=== PATIENT | female | born 1940 | race Caucasian/White ===

== ENCOUNTER 2017-05-21 18:07 | Inpatient (IN) | payer MEDICARE ==
[~2017-05-21] VITALS: Ht 162.6 cm; Wt 92.2 kg
[2017-05-21] MEDS ORDERED: DEXTROSE 50% 25 GM / 50ML DISP.SYRIN. IV ONE (18:26)
[2017-05-21 18:48] LABS: BASO # 0.1 x10^3/uL (0.0-0.2); BASO % 1 % (0-3); EOS # 0.3 x10^3/uL (0.0-0.7); EOS % 3 % (0-3); HEMOGLOBIN 12.5 g/dL (12.0-15.5); LYMPH # 1.8 x10^3/uL (1.0-4.8); LYMPH % 14 % (24-48); MEAN CORPUSCULAR HEMOGLOBIN 29 pg (25-35); MEAN CORPUSCULAR HGB CONC 33 g/dL (31-37); MEAN CORPUSCULAR VOLUME 89 fL (79-100); MONO # 0.8 x10^3/uL (0.0-1.1); MONO % 6 % (0-9); NEUT # 10.2 x10^3uL (1.8-7.7); NEUT % 77 % (31-73); PLATELET COUNT 257 x10^3/uL (140-400); RED BLOOD COUNT 4.26 x10^6/uL (3.50-5.40); RED CELL DISTRIBUTION WIDTH 15.7 % (11.5-14.5); WHITE BLOOD COUNT 13.3 x10^3/uL (4.0-11.0)
[2017-05-21 19:08] LABS: ALBUMIN 3.6 g/dL (3.4-5.0); ALBUMIN/GLOBULIN RATIO 0.8 (1.0-1.7); CALCIUM 10.5 mg/dL (8.5-10.1); CREATININE 1.1 mg/dL (0.6-1.0); MAGNESIUM 1.8 mg/dL (1.8-2.4); POTASSIUM 3.4 mmol/L (3.5-5.1); TOTAL BILIRUBIN 0.5 mg/dL (0.2-1.0); TOTAL PROTEIN 8.4 g/dL (6.4-8.2)
--- NOTE | 2017-05-21 19:40 | PHYS DOC ---
Past History Past Medical History: A-Fib, Diabetes, Hypertension, Other Past Surgical History: No Surgical History Alcohol Use: None Drug Use: None Adult General Chief Complaint Chief Complaint: HYPOGLYCEMIA HPI HPI 76-year-old female patient brought in by EMS because of hypoglycemia. Patient states she was getting ready to fix dinner and went to the bathroom and felt weak and unable to get up. Patient states she was very weak and he was not able to move her and called 911 to get some help to take her back to the bed. EMS reported the patient was confused and not acting right and they checked her blood sugar that was 37. EMS reported that they were not able to start IV line and gave her oral glucose with improvement of her condition. Patient had blood sugar of 30 at arrival to ER and had IV line and one amp of D50 with improvement of her mental condition. 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 Patient has had left foot diabetic ulcer and surgery 5 years ago and seen by podiatric every other Friday and seen by her podiatric today. Review of Systems Review of Systems Constitutional: Denies fever or chills,reports generalized weakness[] Eyes: Denies change in visual acuity, redness, or eye pain [] HENT: Denies nasal congestion or sore throat [] Respiratory: Denies cough or shortness of breath [] Cardiovascular: No additional information not addressed in HPI [] GI: Denies abdominal pain, nausea, vomiting, bloody stools or diarrhea [] : Denies dysuria or hematuria [] Musculoskeletal: Denies back pain or joint pain [, reports lower extremity edema ] Integument: Denies rash or skin lesions [] Neurologic: Denies headache, focal weakness or sensory changes [] Endocrine: Denies polyuria or polydipsia [] All other systems were reviewed and found to be within normal limits, except as documented in this note. Current Medications Current Medications Current Medications Medications (Trade) Dose Ordered Sig/Ángel Start Time Stop Time Status Last Admin Dose Admin Dextrose 25 gm STK-MED ONCE 05/21/17 18:26 05/21/17 18:27 DC Allergies Allergies Allergies Coded Allergies Type Severity Reaction Last Updated Verified celecoxib Allergy Mild Unknown 05/21/17 Yes Physical Exam Physical Exam Constitutional: Well developed, well nourished, mild distress, non-toxic appearance, deaf, patient already had D50 at arrival to ER. [] HENT: Normocephalic, atraumatic, oropharynx moist, no oral exudates Eyes: PERRLA, EOMI, conjunctiva normal, no discharge. [] Neck: Normal range of motion, no tenderness, supple, no stridor. [] Cardiovascular:Heart rate regular rhythm, no murmur [] Lungs & Thorax: Bilateral breath sounds clear to auscultation [] Abdomen: Bowel sounds normal, soft, no tenderness, no masses, no pulsatile masses. [] Skin: Warm, dry, no erythema, no rash. [] Back: No tenderness, no CVA tenderness. [] Extremities: No tenderness, no cyanosis, no clubbing, ROM intact, bilateral lower extremity 2+ edema, left foot with clean dressing without sign of infection. [] Neurologic: Alert and oriented X 3, normal motor function, normal sensory function, no focal deficits noted. [] Psychologic: Affect normal, judgement normal, mood normal. [] Current Patient Data Vital Signs Vital Signs Date Time Temp Pulse Resp B/P (MAP) Pulse Ox O2 Delivery O2 Flow Rate FiO2 05/21/17 18:18 98.4 52 22 95 Room Air Lab Results Laboratory Tests Test 05/21/17 18:10 05/21/17 19:03 White Blood Count 13.3 x10^3/uL (4.0-11.0) H Red Blood Count 4.26 x10^6/uL (3.50-5.40) Hemoglobin 12.5 g/dL (12.0-15.5) Hematocrit 38.0 % (36.0-47.0) Mean Corpuscular Volume 89 fL (79-100) Mean Corpuscular Hemoglobin 29 pg (25-35) Mean Corpuscular Hemoglobin Concent 33 g/dL (31-37) Red Cell Distribution Width 15.7 % (11.5-14.5) H Platelet Count 257 x10^3/uL (140-400) Neutrophils (%) (Auto) 77 % (31-73) H Lymphocytes (%) (Auto) 14 % (24-48) L Monocytes (%) (Auto) 6 % (0-9) Eosinophils (%) (Auto) 3 % (0-3) Basophils (%) (Auto) 1 % (0-3) Neutrophils # (Auto) 10.2 x10^3uL (1.8-7.7) H Lymphocytes # (Auto) 1.8 x10^3/uL (1.0-4.8) Monocytes # (Auto) 0.8 x10^3/uL (0.0-1.1) Eosinophils # (Auto) 0.3 x10^3/uL (0.0-0.7) Basophils # (Auto) 0.1 x10^3/uL (0.0-0.2) Sodium Level 141 mmol/L (136-145) Potassium Level 3.4 mmol/L (3.5-5.1) L Chloride Level 102 mmol/L (98-107) Carbon Dioxide Level 26 mmol/L (21-32) Anion Gap 13 (6-14) Blood Urea Nitrogen 29 mg/dL (7-20) H Creatinine 1.1 mg/dL (0.6-1.0) H Estimated GFR (Cockcroft-Gault) 48.0 BUN/Creatinine Ratio 26 (6-20) H Glucose Level 30 mg/dL (70-99) *L Calcium Level 10.5 mg/dL (8.5-10.1) H Magnesium Level 1.8 mg/dL (1.8-2.4) Total Bilirubin 0.5 mg/dL (0.2-1.0) Aspartate Amino Transferase (AST) 20 U/L (15-37) Alanine Aminotransferase (ALT) 16 U/L (14-59) Alkaline Phosphatase 120 U/L (46-116) H Troponin I Quantitative < 0.017 ng/mL (0-0.055) OG-Xlr-G-Type Natriuretic Peptide 2278 pg/mL (0-449) H Total Protein 8.4 g/dL (6.4-8.2) H Albumin 3.6 g/dL (3.4-5.0) Albumin/Globulin Ratio 0.8 (1.0-1.7) L Glucose (Fingerstick) 137 mg/dL (70-99) H EKG EKG [] Radiology/Procedures Radiology/Procedures [] Course & Med Decision Making Course & Med Decision Making Pertinent Labs and Imaging studies reviewed. (See chart for details) Evaluation of patient in ER showed 76-year-old deaf female patient brought in by EMS because of hypoglycemia and altered level of consciousness. She had blood sugar of 30 at arrival to ER and treated with D50 and blood sugar increased to 137 and was stable at 100s. Patient had more than 40 WBC UA and treated with Rocephin. Plan to admit patient diagnose of hypoglycemia and uncontrolled diabetes mellitus and UTI. Patient has chronic CHF and currently taking Lasix. Patient also has history of left diabetic foot ulcerand seen by podiatric today. Dragon Disclaimer Dragon Disclaimer This electronic medical record was generated, in whole or in part, using a voice recognition dictation system. Departure Departure: Impression: Primary Impression: Hypoglycemia Additional Impressions: Altered level of consciousness Renal insufficiency CHF (congestive heart failure) Diabetic foot ulcer Disposition: ADMITTED INPATIENT (At 1957) Admitting Physician: Erin Johnson Condition: IMPROVED Referrals: MAHI FOX MD (PCP) Problem Qualifiers DAPHNE SPAIN MD May 21, 2017 19:40
[2017-05-21] MEDS ORDERED: DEXTROSE 50% 25 GM / 50ML DISP.SYRIN. IV PRN (20:00)
[2017-05-21 20:06] LABS: CLARITY,URINE CLOUDY; COLOR,URINE YELLOW
[2017-05-21 20:07] LABS: BACTERIA,URINE FEW /HPF (0-FEW); BILIRUBIN,URINE NEG (NEG); GLUCOSE,URINE 100 mg/dL (NEG); NITRITE,URINE NEG (NEG); SQUAMOUS EPITHELIAL CELL,UR MOD /LPF; UROBILINOGEN,URINE 0.2 mg/dL (0.2 mg/dL); WBC,URINE >40 /HPF (0-4)
[2017-05-21] MEDS ORDERED: cefTRIAXone IV Push 1 GM VIAL. IVP ONE (21:00)
--- NOTE | 2017-05-21 21:35 | NUR ---
ADMISSION: The patient, DORINDA CRUZ, 76 y/o, F admitted by MIK KEENAN MD, was given written information regarding hospital policies, unit procedures and contact persons. Pt arrived to room 109 via gurney, accompanied by [facility] and nursing sup. Dx: hypoglycemia, ALOC, renal insufficiency. Pt is A/Ox3, but hearing impaired. Pt was brought to ED via EMS after called 911 because patient was confused and too weak to get up from bathroom. Glucose 30mg/dL upon arrival to ED, IV access obtained and pt received 1 amp D50. Condition improved. PMH reviewed with patient, limited. POC discussed, V/U. Pt placed on telemetry, showing afib with HR in the 60's. Pt has diabetic ulcer to left great toe, sees network control operators supervisor weekly. Area measured and pic taken. Cleansed and dressed with gauze pads + kerlix. Wound care consulted. Pt provided with box lunch and H20. Denies c/o. Bed in lowest position. Call light within reach. Valuables were checked and logged. Left in room with patient.
[2017-05-21 22:48] VITALS: BP 149/71
[2017-05-22] MEDS ORDERED: RIVA20TA2 PO (00:31)
[2017-05-22] MEDS ORDERED: LISI10TA2 PO (00:31)
[2017-05-22] MEDS ORDERED: INSU100V31 SQ (00:31)
[2017-05-22] MEDS ORDERED: CARV3.122 PO (00:31)
[2017-05-22] MEDS ORDERED: LEVO50TA5 PO (00:31)
[2017-05-22] MEDS ORDERED: AMLO1CAP7 PO (00:31)
[2017-05-22] MEDS ORDERED: METH5TAB6 PO (00:31)
[2017-05-22] MEDS ORDERED: ATOR20TA58 PO (00:31)
[2017-05-22] MEDS ORDERED: FURO20TA3 PO (00:31)
[2017-05-22] MEDS ORDERED: INSU100V8 SQ (00:31)
[2017-05-22 05:31] VITALS: BP 155/67
[2017-05-22 06:28] LABS: BASO # 0.1 x10^3/uL (0.0-0.2); BASO % 1 % (0-3); EOS # 0.1 x10^3/uL (0.0-0.7); EOS % 2 % (0-3); HEMATOCRIT 37.4 % (36.0-47.0); HEMOGLOBIN 12.1 g/dL (12.0-15.5); LYMPH % 12 % (24-48); MEAN CORPUSCULAR HEMOGLOBIN 29 pg (25-35); MEAN CORPUSCULAR HGB CONC 32 g/dL (31-37); MEAN CORPUSCULAR VOLUME 90 fL (79-100); MONO # 0.5 x10^3/uL (0.0-1.1); MONO % 6 % (0-9); NEUT # 6.7 x10^3uL (1.8-7.7); NEUT % 79 % (31-73); PLATELET COUNT 222 x10^3/uL (140-400); RED BLOOD COUNT 4.16 x10^6/uL (3.50-5.40); WHITE BLOOD COUNT 8.4 x10^3/uL (4.0-11.0)
[2017-05-22 06:47] LABS: ALBUMIN 3.1 g/dL (3.4-5.0); ALBUMIN/GLOBULIN RATIO 0.7 (1.0-1.7); CALCIUM 10.1 mg/dL (8.5-10.1); GFR 53.6; POTASSIUM 3.6 mmol/L (3.5-5.1); TOTAL BILIRUBIN 0.6 mg/dL (0.2-1.0); TOTAL PROTEIN 7.4 g/dL (6.4-8.2)
[2017-05-22] MEDS ORDERED: LEVOTHYROXINE 50 MCG TABLET PO SCH (07:00)
[2017-05-22] MEDS: INSULIN ASPART 300 UNITS/3 ML INSULN.PEN SQ SCH ×3 (08:01→16:30)
[2017-05-22] MEDS: CARVEDILOL 3.125 MG TABLET PO SCH ×2 (08:14→17:00)
--- NOTE | 2017-05-22 08:35 | NUR ---
[facility] - SHIFT CHANGE REPORT REC BY FERMIN. PT IN BED, ASLEEP. IN ROOM. LABS/ORDERS REVIEWED.
[2017-05-22] MEDS ORDERED: INSULIN DETEMIR 300 UNITS/3 ML INSULN.PEN. SQ SCH (09:00)
[2017-05-22] MEDS: LISINOPRIL 10 MG TABLET PO SCH ×4 (09:00→21:02)
[2017-05-22] MEDS: LACTOBACILLUS RHAMNOSUS GG 1 CAPSULE. PO SCH ×2 (10:11→21:00)
[2017-05-22] MEDS: FUROSEMIDE 20 MG TABLET PO SCH (10:12)
[2017-05-22] MEDS: amLODIPine BESYLATE 2.5 MG TABLET PO SCH ×2 (10:23→21:01)
[2017-05-22 11:00] VITALS: BP 107/65
[2017-05-22 14:28] LABS: FREE T4 0.92 ng/dL (0.76-1.46); THYROID STIM HORMONE (TSH) 3.171 uIU/mL (0.358-3.740)
[2017-05-22 15:00] VITALS: BP 120/70
[2017-05-22] MEDS: RIVAROXABAN 10 MG TABLET. PO SCH (16:01)
--- NOTE | 2017-05-22 16:17 | HP ---
ADMIT DATE: 05/22/2017 HISTORY OF PRESENT ILLNESS: The patient is a 76-year-old female patient who was brought to the Emergency by EMS because of hypoglycemia. The patient states she was getting ready to fix dinner and went to the bathroom and felt weak and unable to get up. Her states she was very weak and he was not able to move her and called 911 to get some help to take her back into the bed. EMS reported the patient was confused, not acting right and they checked her blood sugar, it was only 37. They reported they were not able to start IV line and gave her oral glucose with improvement in her condition. The patient had blood sugar of 30 on arrival to the Emergency Room and an IV line was given with an amp of D50 and with improvement in her mental status. The patient is deaf and history is limited. She has also had left foot diabetic ulcer and surgery 5 years ago and seen by risk reduction counselor every other Friday. PAST MEDICAL HISTORY: Significant for type 2 diabetes, hypertension, atrial fibrillation, peripheral vascular disease, osteoarthritis. 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 ALLERGIES: She is allergic to CELEBREX. MEDICATIONS: She is currently on following medications: Xarelto 20 mg once a day, atorvastatin calcium 20 mg at bedtime, carvedilol 3.125 mg twice a day, amlodipine/benazepril 2.5-10 mg b.i.d., lisinopril 10 mg daily, furosemide 20 mg once a day. She is on NovoLog 4 units before meals and Lantus insulin 35 units at bedtime, levothyroxine sodium 50 mcg once a day and methimazole 5 mg daily. REVIEW OF SYSTEMS: The patient denied any blurring of vision, cataract, glaucoma or macular degeneration. Denied any earache, tinnitus or sensorineural deafness. Denied any nosebleeds, stuffy noise or postnasal drip. Denied any sore throat, sore tongue, toothache, hoarseness of voice or difficulty swallowing. Denied any nausea, vomiting, diarrhea or constipation. Denied any hematemesis, melena or hematochezia. Denied dysuria, frequency or hematuria. Denied any chest pain, shortness of breath, orthopnea or paroxysmal nocturnal dyspnea. Denied any cough, phlegm or hemoptysis. Denied any dizziness, lightheadedness, or vertigo. FAMILY HISTORY: Her family's history Significant for two brothers and 1 sister. Her one brother of brain tumor and the other brother is still alive, has diabetes and kidney disease. Her sister is hard of hearing. Also, her father in his 80s and mother at age of 92, the cause of that is not clear. SOCIAL HISTORY: She is , has 3 sons, one because of infected left foot and also massive pulmonary embolism. Two other sons are still alive and apparently have some form of disease predisposing to thrombosis. The are on anticoagulation. PHYSICAL EXAMINATION: GENERAL: On arrival to the Emergency Room, she looked well and was clearly in no apparent respiratory distress. She was pale, but no jaundice, cyanosis, or thyromegaly. No jugular venous distension. No limb edema. VITAL SIGNS: Her heart rate was 52, blood pressure 166/75, temperature was 98.4, respiratory rate 20, and oxygen saturation was 96% on room air. HEAD, EYES, EARS, NOSE, AND THROAT: Showed normocephalic, atraumatic. NECK: Supple. HEART: Showed normal first and second heart sounds with no gallop, rub or murmur. CHEST: Clear to auscultation. No crepitation or rhonchi. ABDOMEN: Distended, soft, nontender. No guarding or rigidity. No organomegaly. Hernial orifices intact. Bowel sounds normal. NEUROLOGIC: She is very hard of hearing, but otherwise cranial nerves intact. EXTREMITIES: She moves extremities without difficulty. She apparently ambulates with a walker. She has a walking boot on her left foot. LABORATORY DATA: On arrival to the Emergency Room showed a white cell count of 13,300, hemoglobin 12.5, hematocrit 38, MCV 89 and platelet count of 257,000. Her chemistry showed a serum sodium of 141, potassium 3.4, chloride 102, bicarbonate 26, anion gap of 13, BUN 29, creatinine 1.1, estimated GFR was 48 mL per minute. Her glucose on arrival was only 30 mg, calcium was 7.5, magnesium was 1.8. Total bilirubin, AST, ALT, alkaline phosphatase were normal. Her beta natriuretic was 2278. Total protein was 8.4, albumin was 3.6. Her urinalysis showed the urine was yellow, cloudy with a pH of 6, specific gravity of 1.015. There was large amount of protein, moderate amount of glucose, negative for ketones, moderate amount of blood, negative for nitrite and bilirubin, moderate amount of leukocyte esterase. There was 6-10 rbc's, more than 40 wbc's, and very few bacteria. ASSESSMENT AND PLAN: The patient was basically admitted with urinary tract infection, hypoglycemia with altered mental status and diabetic foot ulcer. The patient was basically admitted, was started on IV ceftriaxone, continue with her other medication. We will monitor her blood sugar and adjust insulin as needed. MIK KEENAN MD DR: JOSE/corey JOB#: [id number] / [id number]
--- NOTE | 2017-05-22 17:05 | NUR ---
Wound Care Wound care consult for L great toe DFU. Cleansed and assessed wound. Dressed with xeroform gauze and telfa pad, recommend to change every 2 days. Discussed POC with pt and KING Gallegos. Educated pt on pressure ulcer prevention and floated heels. No other wounds found on full skin inspection.
[2017-05-22 19:10] LABS: THYROXINE 6.1 ug/dL (4.5-12.0)
[2017-05-22 19:44] VITALS: BP 128/71
[2017-05-22] MEDS: cefTRIAXone IV Push 1 GM VIAL. IVP SCH (21:00)
[2017-05-22] MEDS: ATORVASTATIN CALCIUM 20 MG TABLET PO SCH (21:00)
--- NOTE | 2017-05-22 21:51 | PN ---
DATE: 05/22/2017 SUBJECTIVE: The patient is sitting propped up comfortably, in no apparent distress. On questioning her, denied any complaint. Nursing staff did not voice any concerns that she had an uneventful night. Her blood sugar has remained stable. PHYSICAL EXAMINATION: GENERAL: When I examined her, she was slightly pale, no jaundice, cyanosis, or thyromegaly. No jugular venous distension. No limb edema. VITAL SIGNS: Her heart rate was 65, blood pressure was 155/67, temperature was 98, respiratory rate was 18 and oxygen saturation was 98%. HEAD, EYES, EARS, NOSE AND THROAT: Showed normocephalic, atraumatic. NECK: Supple. HEART: Showed normal first and second heart sounds. No gallop, rub or murmur. CHEST: Clear to auscultation. No crepitation or rhonchi. ABDOMEN: Distended, soft, nontender. No guarding or rigidity. No organomegaly. Hernial orifices intact. Bowel sounds normal. NEUROLOGIC: She was very hard of hearing, otherwise all cranial nerves intact. She moves extremities without difficulty. She ambulates with a walker. She has peripheral vascular disease and diabetic foot ulcers. 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 LABORATORY DATA: As of this morning showed her white cell count is down to 8400, hemoglobin 12, hematocrit 37, MCV 90 and platelet count ____. Her chemistry showed a serum sodium 143, potassium 3.6, chloride 105, bicarbonate 30, anion gap of 8, BUN 25, creatinine 1, estimated GFR was 53 mL per minute. Her glucose 122, calcium was 10.1. Total bilirubin, AST, ALT, alkaline phosphatase were normal. Total protein was 7.4, albumin 3.1. Her TSH was 3.171, and free T4 was 0.92. ASSESSMENT: 1. Altered mental status, resolved. Her blood sugar has stabilized with no further episodes of hypoglycemia. 2. Acute kidney injury, resolving. Her creatinine is down from 1.1-1 and BUN from 28-25. 3. Diabetic foot ulcer. 4. Congestive heart failure. 5. Atrial fibrillation, rate controlled, we will anticoagulate it. 6. The patient is on both methimazole and levothyroxine, has spoken with Dr. Panedy and the plan is to discontinue both of them and to check her thyroid function in 4 weeks' time. Meanwhile, we will continue. 7. She has also urinary tract infection for which she is now on Rocephin 1 gram IV. Would continue with that. 8. We will repeat all her lab works tomorrow and we will arrange for a bone scan to make sure there is no evidence of infection or osteomyelitis of her left foot and decide the further management accordingly. MIK KEENAN MD DR: JOSE/corey JOB#: [id number] / [id number]
[2017-05-22 23:20] VITALS: BP 125/52
[2017-05-23 05:09] VITALS: BP 123/66
[2017-05-23 06:11] LABS: HEMATOCRIT 36.6 % (36.0-47.0); HEMOGLOBIN 11.9 g/dL (12.0-15.5); RED BLOOD COUNT 4.08 x10^6/uL (3.50-5.40); WHITE BLOOD COUNT 10.9 x10^3/uL (4.0-11.0)
[2017-05-23 06:28] LABS: ALBUMIN 3.1 g/dL (3.4-5.0); ALBUMIN/GLOBULIN RATIO 0.7 (1.0-1.7); C REACTIVE PROTEIN 19.3 mg/L (0-3.3); CALCIUM 9.7 mg/dL (8.5-10.1); CREATININE 1.1 mg/dL (0.6-1.0); POTASSIUM 3.9 mmol/L (3.5-5.1); TOTAL BILIRUBIN 0.4 mg/dL (0.2-1.0); TOTAL PROTEIN 7.4 g/dL (6.4-8.2)
[2017-05-23] MEDS: INSULIN ASPART 300 UNITS/3 ML INSULN.PEN SQ SCH ×3 (07:30→17:24)
[2017-05-23] MEDS: LACTOBACILLUS RHAMNOSUS GG 1 CAPSULE. PO SCH ×2 (08:48→20:03)
[2017-05-23] MEDS: FUROSEMIDE 20 MG TABLET PO SCH (08:49)
[2017-05-23] MEDS: amLODIPine BESYLATE 2.5 MG TABLET PO SCH ×2 (08:49→20:11)
[2017-05-23] MEDS: LISINOPRIL 10 MG TABLET PO SCH ×2 (08:49→20:12)
[2017-05-23] MEDS: CARVEDILOL 3.125 MG TABLET PO SCH ×2 (08:50→17:21)
[2017-05-23] MEDS: INSULIN DETEMIR 300 UNITS/3 ML INSULN.PEN. SQ SCH (08:52)
[2017-05-23 10:33] VITALS: BP 113/61
[2017-05-23 15:11] VITALS: BP 106/52
--- NOTE | 2017-05-23 16:49 | RAD ---
Three-phase bone scan of the feet, 05/23/2017: History: Diabetic foot ulcer Imaging of the feet was performed following IV injection of 25.0 mCi of technetium 99m MDP. No previous bone scan is available at this time for correlative purposes. The dynamic flow study demonstrates hyperemia involving the left forefoot, particularly at the level of the toes. This is also evident on the blood pool image. Delayed images demonstrate increased activity involving the left great toe, most prominent at the MTP joint level and to a lesser degree involving the distal phalanx. Additional areas of increased activity at the midfoot level and ankle joint levels bilaterally are probably arthritic in nature. IMPRESSION: 1. Abnormal activity involving the left great toe at the MTP joint and distal phalangeal level raising the possibility of osteomyelitis. Radiographic correlation is suggested. 2. Increased activity at mid foot and ankle joint levels bilaterally is likely arthritic. Again, radiographic correlation is suggested.
[2017-05-23] MEDS: RIVAROXABAN 10 MG TABLET. PO SCH (17:21)
[2017-05-23 19:25] VITALS: BP 128/88
[2017-05-23] MEDS: cefTRIAXone IV Push 1 GM VIAL. IVP SCH (20:03)
[2017-05-23] MEDS: ATORVASTATIN CALCIUM 20 MG TABLET PO SCH (20:03)
[2017-05-24 00:22] VITALS: BP 120/66
--- NOTE | 2017-05-24 03:43 | PN ---
DATE: 05/23/2017 SUBJECTIVE: The patient is sitting comfortably in her chair, in no apparent distress. She did have hypoglycemia early this morning; however, we cut down her Levemir yesterday. She takes in the morning and from 35-20 and so far his blood sugar before lunch is 191. When I examined her, on questioning her, denied any complaint. She is very hard of hearing, but her said that she is stronger, has been able to walk. We did a bone scan of her feet because she has diabetic foot ulcers. The test was done, but it has not read yet. PHYSICAL EXAMINATION: GENERAL: When I examined her, she looked slightly pale, no jaundice, cyanosis or thyromegaly. No jugular venous distention. No limb edema. VITAL SIGNS: Her heart rate was 61, blood pressure was 106/52, temperature was 97.5, respiratory rate 20, and oxygen saturation was 97%. HEAD, EYES, EARS, NOSE AND THROAT: Normocephalic, atraumatic head. NECK: Supple. HEART: Showed normal first and second heart sounds with no gallop, rub or murmur. CHEST: Clear to auscultation. No crepitation or rhonchi. ABDOMEN: Distended, soft, nontender. NEUROLOGIC: She is very hard of hearing, but otherwise all cranial nerves are intact. She moves extremities without difficulty. According to her , she is able to ambulate even without assistance or assistive devices. Her intake was 1500. No output was recorded. LABORATORY DATA: Her lab work as of this morning showed a serum sodium 141, potassium 3.9, chloride 104, bicarbonate 30, anion gap of 7, BUN 26, creatinine 1.1, estimated GFR was 48 mL per minute. Her glucose was 48, calcium was 9.7. Total bilirubin, AST, ALT, alkaline phosphatase were normal. Her C-reactive protein was high at 19.3. Total protein 7.4, albumin was 3.1. Her white cell count was 10,900, hemoglobin 12, hematocrit 36, MCV 90, and platelet count 233,000. Her sedimentation rate was 36 mL per minute. Her urinalysis showed moderate amount of leukocyte esterase, 6-10 wbc's, more than 40 wbc's, and few bacteria. The culture is still pending at the time of this dictation. ASSESSMENT AND PLAN: 1. Altered mental status, resolved. Her blood sugar has stabilized and she did have 1 more episode of hypoglycemia this morning; however, we cut down her Levemir. 2. Acute kidney injury, resolving. Her creatinine is down from 1.1-1, BUN 28-25. 3. Diabetic foot ulcer. 4. Congestive heart failure. 5. Atrial fibrillation, rate controlled, and well anticoagulated. 6. The patient has both methimazole and levothyroxine and I did speak with Dr. Pandey and plan is we have discontinued both of them with I want to check her thyroid function test in 4 weeks' time. 7. Urinary tract infection for which she is on Rocephin 1 gram IV. 8. She has diabetic foot ulcers and I did actually, with elevated sedimentation rate and CRP, the bone scan was done to rule out possibility of osteomyelitis the result of which is still pending at the time of this dictation. MIK KEENAN MD DR: JOSE/corey JOB#: [id number] / [id number]
[2017-05-24 05:54] VITALS: BP 144/82
[2017-05-24 07:33] LABS: HEMATOCRIT 34.5 % (36.0-47.0); HEMOGLOBIN 11.4 g/dL (12.0-15.5); RED BLOOD COUNT 3.87 x10^6/uL (3.50-5.40); RED CELL DISTRIBUTION WIDTH 15.6 % (11.5-14.5); WHITE BLOOD COUNT 8.1 x10^3/uL (4.0-11.0)
[2017-05-24 07:39] LABS: CALCIUM 9.6 mg/dL (8.5-10.1); CREATININE 1.1 mg/dL (0.6-1.0)
[2017-05-24] MEDS: LACTOBACILLUS RHAMNOSUS GG 1 CAPSULE. PO SCH (08:28)
[2017-05-24] MEDS: LISINOPRIL 10 MG TABLET PO SCH (08:29)
[2017-05-24] MEDS: amLODIPine BESYLATE 2.5 MG TABLET PO SCH (08:29)
[2017-05-24] MEDS: FUROSEMIDE 20 MG TABLET PO SCH (08:30)
[2017-05-24] MEDS: CARVEDILOL 3.125 MG TABLET PO SCH (08:30)
[2017-05-24] MEDS: INSULIN ASPART 300 UNITS/3 ML INSULN.PEN SQ SCH (08:37)
[2017-05-24] MEDS: INSULIN DETEMIR 300 UNITS/3 ML INSULN.PEN. SQ SCH (08:38)
[2017-05-24 09:51] VITALS: BP 125/65
--- NOTE | 2017-05-24 10:19 | RAD ---
Two-view study of both feet History: Possible osteomyelitis on bone scan. Diabetic foot ulcer. Left foot: No acute fracture is evident.There are chronic erosions of the first and second and third and fourth distal phalanges. Loss of the cortex of the lateral distal aspect of the first distal phalanx is seen. Based on the bone scan findings, osteomyelitis may be present here. There is severe primary degenerative osteoarthritis of the first metatarsal phalangeal joint which corresponds to the bone scan finding. There is degenerative osteoarthritis of the intertarsal joints which corresponds to bone scan finding. There is flattening of the plantar arch. Plantar and posterior spurs the calcaneus are seen. Metallic surgical hardware is seen within the distal fibula. IMPRESSION: Chronic erosions of the first through fourth distal phalanges. Loss of cortex of the lateral aspect of the first distal phalanx. This finding conjunction of bone scan findings consistent osteomyelitis. Additional findings as discussed above. Right foot: No acute fracture is evident. Chronic erosion of the third distal phalanx is seen. The first and second distal phalanges are absent which may be due to previous surgery or chronic erosion. There is mild primary degenerative osteoarthritis of the first metatarsal phalangeal joint. Degenerative osteoarthritis of the intertarsal joints is seen which corresponds to the bone scan finding. A surgical staple is seen crossing the first tarsal metatarsal joint for purposes of arthrodesis. The joint space is still present. Flattening of the plantar arch is seen. Plantar spur of the calcaneus is seen. IMPRESSION: Chronic erosion of the third distal phalanx. The first and distal phalanges are absent which may be due to previous surgery or chronic erosion. Additional findings as discussed above.
[2017-05-24 13:53] VITALS: BP 123/70
--- NOTE | 2017-05-24 14:15 | NUR ---
Pt transferred to [facility] for MRI and PICC placement. Report given, EMS called, pt off unit via EMS.
--- NOTE | 2017-05-24 14:23 | DS ---
DATE OF DISCHARGE: 05/24/2017 HOSPITAL COURSE: The patient is a 76-year-old female patient, who was originally admitted with altered mental status, attributed to recurrent hypoglycemia and also UTI. We did cut down her Levemir insulin from 35-20 units and her blood sugar if anything now is somewhat on the higher side. Her urinalysis also was suggestive of urinary tract infection. She was started on Rocephin and she has had no further episode of hypoglycemia; however, she has wounds in her left big toe and we did a bone scan and x-ray of her left foot, which is suggestive of osteomyelitis and therefore a decision was made to transfer her to [facility] with a view to do an MRI to confirm or refute the possibility of osteomyelitis and if did confirm it then to obviously place a PICC line and treat her with antibiotics and/or consult the orthopedic surgeon to see if amputation is the other option. PHYSICAL EXAMINATION: GENERAL: When I saw her today, she looked well and was clearly in no apparent respiratory distress, slightly pale, but no jaundice, cyanosis, or thyromegaly. No jugular venous distension. No lower limb edema. VITAL SIGNS: Her heart rate was 62, blood pressure was 125/65, temperature was 97.6, respiratory rate 20, and oxygen saturation was 93% on room air. HEAD, EYES, EARS, NOSE AND THROAT: Normocephalic, atraumatic. NECK: Supple. HEART: Showed normal first and second heart sounds. No gallop, rub or murmur. CHEST: Clear to auscultation. No crepitation or rhonchi. ABDOMEN: Distended, soft, nontender. No guarding or rigidity. No organomegaly. Hernial orifice is intact. Bowel sounds normal. NEUROLOGIC: She is very hard of hearing, but all her cranial nerves are intact. She moves extremities without difficulty. She ambulates with a walker. Her intake over the last 24 hours was 1380. No output was recorded. LABORATORY DATA: Her lab work as of this morning showed a serum sodium of 41, potassium 4, chloride 104, bicarbonate 30, anion gap of 7, BUN 27, creatinine 1.1, estimated GFR was 48 mL per minute. Her glucose 125, calcium was 9.6. Her white cell count was 8100, hemoglobin 11.4, hematocrit 34, MCV was 89, and platelet count was 107. Her sedimentation rate was 36. C-reactive protein was 19.3 mg/dL. DISCHARGE MEDICATIONS: The patient will be discharged or transferred to [facility] on ceftriaxone 1 g IV daily, amlodipine, besylate/benazepril 2.5/10 twice a day, atorvastatin calcium 20 mg at bedtime, carvedilol 3.125 mg twice a day, furosemide 20 mg once a day, NovoLog insulin 4 units before meals and ____ Lantus insulin 35 units in the morning. She is on lisinopril 10 mg daily and rivaroxaban for Xarelto 20 mg daily. FINAL DISCHARGE DIAGNOSES: 1. Recurrent episode of hypoglycemia with resultant altered mental status. 2. Alpwn-ne-gxmdwwk kidney injury. 3. Urinary tract infection. 4. Osteomyelitis of the left big toe. 5. Other medical problems including hyperlipidemia, hypertension, and type 2 diabetes. MIK KEENAN MD DR: JOSE/corey JOB#: [id number] / [id number]
== END 2017-05-24 14:16 | disposition short-term general hospital (02) | DRG 871 ==
LOC: ER 18:07 → 1 SOUTH 19:58
PROVIDERS: ADMIT Internal Medicine; ATTEND Internal Medicine
DX: A41.9 Sepsis, unspecified organism (principal); N17.0 Acute kidney failure with tubular necrosis; M86.8X7 Other osteomyelitis, ankle and foot; N39.0 Urinary tract infection, site not specified; E11.51 Type 2 diabetes mellitus with diabetic peripheral angiopathy without gangrene; E11.621 Type 2 diabetes mellitus with foot ulcer; I48.91 Unspecified atrial fibrillation; E11.649 Type 2 diabetes mellitus with hypoglycemia without coma; E11.69 Type 2 diabetes mellitus with other specified complication; I11.0 Hypertensive heart disease with heart failure; I50.9 Heart failure, unspecified; L97.529 Non-pressure chronic ulcer of other part of left foot with unspecified severity; E78.5 Hyperlipidemia, unspecified; H91.90 Unspecified hearing loss, unspecified ear; M19.90 Unspecified osteoarthritis, unspecified site; Z83.3 Family history of diabetes mellitus; Z90.710 Acquired absence of both cervix and uterus; Z90.722 Acquired absence of ovaries, bilateral; Z90.79 Acquired absence of other genital organ(s); Z88.8 Allergy status to other drugs, medicaments and biological substances; Z79.899 Other long term (current) drug therapy; Z79.4 Long term (current) use of insulin; Z82.49 Family history of ischemic heart disease and other diseases of the circulatory system; Z89.421 Acquired absence of other right toe(s)
CPT/HCPCS: 36415; 73620; 78315; 80048; 80053; 81001; 82947; 83036; 83605; 83735; 83880; 84436; 84439; 84443; 84480; 84484; 85025; 85027; 85651; 86140; 87086; 96374; A9503; J0696; J1815; 99285-25

== ENCOUNTER 2017-06-24 13:09 | Inpatient (IN) | payer MEDICARE ==
[~2017-06-24] VITALS: Ht 315 cm; Wt 91.4 kg
[~2017-06-24 13:09] MED LIST: AMLO1CAP7 PO; ATOR20TA58 PO; CARV3.122 PO; FURO20TA3 PO; INSU100V31 SQ; INSU100V8 SQ; LEVO50TA5 PO; LISI10TA2 PO; METH5TAB6 PO; RIVA20TA2 PO
[2017-06-24 13:45] LABS: BASO # 0.1 x10^3/uL (0.0-0.2); BASO % 1 % (0-3); EOS # 0.2 x10^3/uL (0.0-0.7); EOS % 2 % (0-3); HEMATOCRIT 36.1 % (36.0-47.0); HEMOGLOBIN 11.8 g/dL (12.0-15.5); LYMPH # 1.4 x10^3/uL (1.0-4.8); LYMPH % 10 % (24-48); MEAN CORPUSCULAR HEMOGLOBIN 29 pg (25-35); MEAN CORPUSCULAR HGB CONC 33 g/dL (31-37); MEAN CORPUSCULAR VOLUME 89 fL (79-100); MONO # 0.8 x10^3/uL (0.0-1.1); MONO % 5 % (0-9); NEUT % 83 % (31-73); PLATELET COUNT 252 x10^3/uL (140-400); RED BLOOD COUNT 4.05 x10^6/uL (3.50-5.40); RED CELL DISTRIBUTION WIDTH 16.2 % (11.5-14.5); WHITE BLOOD COUNT 14.5 x10^3/uL (4.0-11.0)
[2017-06-24] MEDS ORDERED: DEXTROSE 50% 25 GM / 50ML DISP.SYRIN. IV ONE (13:45)
[2017-06-24] MEDS ORDERED: IV DEXTROSE 10% 1,000 ML IV ONE (13:45)
[2017-06-24 13:59] LABS: ALBUMIN 3.4 g/dL (3.4-5.0); ALBUMIN/GLOBULIN RATIO 0.8 (1.0-1.7); CALCIUM 9.8 mg/dL (8.5-10.1); CREATININE 1.1 mg/dL (0.6-1.0); GFR 47.9; TOTAL BILIRUBIN 0.7 mg/dL (0.2-1.0); TOTAL PROTEIN 7.8 g/dL (6.4-8.2)
--- NOTE | 2017-06-24 14:21 | PHYS DOC ---
Past History Past Medical History: A-Fib, Diabetes, Hypertension, Other Past Surgical History: No Surgical History Alcohol Use: None Drug Use: None Adult General Chief Complaint Chief Complaint: BLOOD SUGAR PROBLEM HPI HPI 77-year-old female patient brought in by EMS because of low blood sugar. Patient state she had her insulin but he is not sure if she ate and then she worked outside at her garden. Patient called 911 because she was unresponsive. EMS reported that she had blood sugar of 22 and treated with 150 mL of DW10% with improvement of mental condition and increase of blood sugar to 133 at arrival to ER. Patient was alert and oriented on arrival to ER and denied any problem. Patient is very hard of hearing. Review of Systems Review of Systems Constitutional: Denies fever or chills [] Eyes: Denies change in visual acuity, redness, or eye pain [] HENT: Denies nasal congestion or sore throat [] Respiratory: Denies cough or shortness of breath [] Cardiovascular: No additional information not addressed in HPI [] GI: Denies abdominal pain, nausea, vomiting, bloody stools or diarrhea [] : Denies dysuria or hematuria [] Musculoskeletal: Denies back pain or joint pain [] Integument: Denies rash or skin lesions [] Neurologic: Denies headache, focal weakness or sensory changes [] Endocrine: Denies polyuria or polydipsia [] All other systems were reviewed and found to be within normal limits, except as documented in this note. Current Medications Current Medications Current Medications Medications (Trade) Dose Ordered Sig/Ángel Start Time Stop Time Status Last Admin Dose Admin Dextrose 1,000 ml @ 75 mls/hr 1X ONCE 06/24/17 13:45 06/25/17 03:04 06/24/17 13:46 75 MLS/HR Potassium Chloride (KCl Oral Soln) 40 meq 1X ONCE 06/24/17 14:30 06/24/17 14:31 Allergies Allergies Allergies Coded Allergies Type Severity Reaction Last Updated Verified celecoxib Allergy Mild Unknown 05/21/17 Yes Physical Exam Physical Exam Constitutional: Well developed, well nourished, no acute distress, non-toxic appearance, hard of hearing. [] HENT: Normocephalic, atraumatic, bilateral external ears normal, oropharynx moist, no oral exudates, nose normal. [] Eyes: PERRLA, EOMI, conjunctiva normal, no discharge. [] Neck: Normal range of motion, no tenderness, supple, no stridor. [] Cardiovascular: Irregularly irregular, bradycardia, no murmur [] Lungs & Thorax: Bilateral breath sounds clear to auscultation [] Abdomen: Bowel sounds normal, soft, no tenderness, no masses, no pulsatile masses. [] Skin: Warm, dry, no erythema, no rash. [] Back: No tenderness, no CVA tenderness. [] Extremities: No tenderness, no cyanosis, no clubbing, ROM intact, no edema. [] Neurologic: Alert and oriented X 3, normal motor function, normal sensory function, no focal deficits noted. [] Psychologic: Affect normal, judgement normal, mood normal. [] Current Patient Data Vital Signs Vital Signs Date Time Temp Pulse Resp B/P (MAP) Pulse Ox O2 Delivery O2 Flow Rate FiO2 06/24/17 13:18 98.1 51 18 98 Room Air Lab Results Laboratory Tests Test 06/24/17 13:33 06/24/17 13:34 06/24/17 14:03 Glucose (Fingerstick) 21 mg/dL (70-99) *L 132 mg/dL (70-99) H White Blood Count 14.5 x10^3/uL (4.0-11.0) H Red Blood Count 4.05 x10^6/uL (3.50-5.40) Hemoglobin 11.8 g/dL (12.0-15.5) L Hematocrit 36.1 % (36.0-47.0) Mean Corpuscular Volume 89 fL (79-100) Mean Corpuscular Hemoglobin 29 pg (25-35) Mean Corpuscular Hemoglobin Concent 33 g/dL (31-37) Red Cell Distribution Width 16.2 % (11.5-14.5) H Platelet Count 252 x10^3/uL (140-400) Neutrophils (%) (Auto) 83 % (31-73) H Lymphocytes (%) (Auto) 10 % (24-48) L Monocytes (%) (Auto) 5 % (0-9) Eosinophils (%) (Auto) 2 % (0-3) Basophils (%) (Auto) 1 % (0-3) Neutrophils # (Auto) 12.0 x10^3uL (1.8-7.7) H Lymphocytes # (Auto) 1.4 x10^3/uL (1.0-4.8) Monocytes # (Auto) 0.8 x10^3/uL (0.0-1.1) Eosinophils # (Auto) 0.2 x10^3/uL (0.0-0.7) Basophils # (Auto) 0.1 x10^3/uL (0.0-0.2) Sodium Level 139 mmol/L (136-145) Potassium Level 3.0 mmol/L (3.5-5.1) L Chloride Level 104 mmol/L (98-107) Carbon Dioxide Level 28 mmol/L (21-32) Anion Gap 7 (6-14) Blood Urea Nitrogen 29 mg/dL (7-20) H Creatinine 1.1 mg/dL (0.6-1.0) H Estimated GFR (Cockcroft-Gault) 47.9 BUN/Creatinine Ratio 26 (6-20) H Glucose Level 28 mg/dL (70-99) *L Calcium Level 9.8 mg/dL (8.5-10.1) Total Bilirubin 0.7 mg/dL (0.2-1.0) Aspartate Amino Transferase (AST) 18 U/L (15-37) Alanine Aminotransferase (ALT) 17 U/L (14-59) Alkaline Phosphatase 116 U/L (46-116) Troponin I Quantitative 0.028 ng/mL (0-0.055) Total Protein 7.8 g/dL (6.4-8.2) Albumin 3.4 g/dL (3.4-5.0) Albumin/Globulin Ratio 0.8 (1.0-1.7) L EKG EKG EKG interpreted by me. EKG at 1357 showed atrial flutter ablation at rate of 52 , low QRS voltage, poor R-wave progress in anteroseptal leads, abnormal T in lateral days[] Radiology/Procedures Radiology/Procedures [] Course & Med Decision Making Course & Med Decision Making Pertinent Labs reviewed. (See chart for details) Evaluation of patient in ER showed 77-year-old patient with history of diabetes brought in because of hypoglycemia and altered level of consciousness. Patient had blood sugar of 86 in emergency room dropped again to 38 and treated with D50 and continuous D10 at rate of 75 mL /hr with a stable blood sugar. She had heart rate of low 50s and high 40s with atrial fibrillation as a chronic problem. Dr. Johnson informed at 1420 and agreed with plan of admission. [] Dragon Disclaimer Dragon Disclaimer This electronic medical record was generated, in whole or in part, using a voice recognition dictation system. Departure Departure: Impression: Primary Impression: Hypoglycemia Additional Impressions: Bradycardia Hypokalemia Atrial fibrillation Hard of hearing Disposition: ADMITTED INPATIENT (At 1420) Admitting Physician: Erin Johnson Condition: GUARDED Referrals: MAHI FOX MD (PCP) Problem Qualifiers DAPHNE SPAIN MD June 24, 2017 14:21
[2017-06-24] MEDS ORDERED: POTASSIUM CHLORIDE 20 MEQ/15 ML ORAL LIQUID. PO ONE (14:30)
--- NOTE | 2017-06-24 15:14 | EKG ---
[address] [address] Test Date: 2017-06-24 Test Time: 13:57:20 Pat Name: DORINDA CRUZ Department: Room: Gender: F [employer]: ELLY : 1940 Requested By: DAPHNE SPAIN Order Number: [id number] Reading MD: Elvis Mistry MD Measurements Intervals [place] Rate: 52 P: SC: QRS: -13 QRSD: 106 T: 119 QT: 528 QTc: 493 Interpretive Statements ATRIAL FIBRILLATION WITH SLOW VENTRICULAR RESPONSE NON-SPECIFIC ST/T CHANGES Electronically Signed On 06-26-2017 12:17:14 CDT by Elvis Mistry MD
[2017-06-24] MEDS ORDERED: ONDANSETRON PF 4 MG/2 ML VIAL. IV PRN (16:15)
[2017-06-24 17:12] LABS: BACTERIA,URINE MANY /HPF (0-FEW); BILIRUBIN,URINE NEG (NEG); CLARITY,URINE HAZY; COLOR,URINE STRAW; GLUCOSE,URINE NEG (NEG); NITRITE,URINE NEG (NEG); SQUAMOUS EPITHELIAL CELL,UR OCC /LPF; UROBILINOGEN,URINE 0.2 mg/dL (0.2 mg/dL)
[2017-06-24 18:33] VITALS: BP 179/62
--- NOTE | 2017-06-24 19:04 | HP ---
ADMIT DATE: 06/24/2017 HISTORY OF PRESENT ILLNESS: The patient is a 77-year-old female patient who apparently was working in her front yard. She did have the usual routine in the morning. She took 35 units of her Lantus insulin and 4 units of NovoLog and stated that she apparently felt weak, and she went back home, she could not climb stairs, so her neighbor came and assisted to put her on the bed, and they brought her glucometer for her glucose test, but she could not do them as she basically lost consciousness. Therefore, she was brought to the Emergency Room where her blood sugar was only 37 mg/dL. She had an IV line, was given an amp of D50. In fact by the time she arrived to Emergency Room, her blood sugar was only 21 and she was given an amp of D50 and her blood sugar went up to 132. She apparently lost her IV line. By the time she arrived to ICU, her blood sugar dropped down to 35 and she was started on D10W, and she was admitted to the ICU to continue to monitor her closely. When I asked her, she stated that she actually stayed longer because she wanted to finish her work in the front yard, and normally, she would have done earlier to eat her lunch, and probably that is what caused her blood sugar to drop this low. She stated that she sticks to her 4 units of NovoLog insulin and 35 units of Lantus, and most of her blood sugars are around above 100, according to her. Occasionally, the blood sugars are very high, but she relates that ____ type of food she is eating, according to her. She denied any other complaint today other than pain in her right lower extremity that is chronic. PAST MEDICAL HISTORY: Significant for insulin requiring type 2 diabetes mellitus, hypertension, atrial fibrillation, peripheral vascular disease, osteoarthritis. She was actually transferred last time to [facility]; however, she was extensively investigated. There was no evidence that she has osteomyelitis of the left big toe. 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 ALLERGIES: SHE IS ALLERGIC TO CELEBREX. MEDICATIONS: She is currently on following medications: She is on rivaroxaban for Xarelto 20 mg daily, atorvastatin calcium 20 mg at bedtime, carvedilol 3.125 mg twice a day, amlodipine/benazepril 2.5/10 twice a day, lisinopril 10 mg daily, furosemide 20 mg daily and NovoLog 4 units subcutaneously 3 times a day before meals and Lantus 35 units daily in the morning. She is on levothyroxine sodium 50 mcg once a day and methimazole 5 mg daily, although I believe that I have discussed with Dr. Pandey that both the methimazole and levothyroxine need to be discontinued. FAMILY HISTORY: Significant for the fact that she has 2 brothers and 1 sister. Her one brother of brain tumor. The other brother still alive, has diabetes and kidney disease. Her sister has hard of hearing. Her father in his 80s and mother at age 92, the cause of their is not clear to her. SOCIAL HISTORY: She is , has 3 sons, one because of infected left foot. There is also massive pulmonary embolism. Two other sons are still alive and apparently had some form of disease predisposing to thrombosis; they are on anticoagulation. REVIEW OF SYSTEMS: The patient denied any blurring of vision, cataract, glaucoma or macular degeneration. Denied any earache, tinnitus. She has severe sensorineural deafness. Denied any nosebleeds, stuffy nose or postnasal drip. Denied any sore throat, sore tongue, toothache, hoarseness of voice or difficulty swallowing. Denied any nausea, vomiting, diarrhea or constipation. Denied any hematemesis, melena or hematochezia. Denied any dysuria, frequency or hematuria. Denied any chest pain, shortness of breath, orthopnea, paroxysmal nocturnal dyspnea. Denied any cough, phlegm or hemoptysis. PHYSICAL EXAMINATION: GENERAL: When I saw her, she was resting slightly propped up in bed, in no apparent respiratory distress. She was pale. No jaundice, cyanosis, or thyromegaly. No jugular venous distension. No limb edema. VITAL SIGNS: Her heart rate was 48, blood pressure 122/60, temperature was 98.1, respiratory rate was 18 and oxygen saturation was 96%. HEAD, EYES, EARS, NOSE AND THROAT: Showed normocephalic, atraumatic. NECK: Supple. HEART: Showed normal first and second heart sounds with no gallop, rub or murmur. CHEST: Clear to auscultation. No crepitation or rhonchi. ABDOMEN: Distended, soft, nontender. No guarding or rigidity. No organomegaly. All hernial orifice intact. Bowel sounds normal. NEUROLOGIC: She is extremely hard of hearing, but otherwise all cranial nerves intact. EXTREMITIES: She moves extremities without difficulty. She has wounds in her left big toe. LABORATORY DATA: On arrival showed a serum sodium 139, potassium 3, chloride 104, bicarbonate 28, anion gap of 7, BUN 29, creatinine 1.1, estimated GFR was 48 mL per minute. Her glucose was 28, calcium was 9.8. Total bilirubin, AST, ALT, alkaline phosphatase were normal. Her total protein was 7.8, albumin 3.4. First set of cardiac enzymes showed troponin to be 0.028. Her white cell count was 14,500, hemoglobin 11.8, hematocrit 36, MCV 89 and platelet count 252,000 with normal manual differential. IMPRESSION: In summary, this is a 77-year-old female patient who yet again admitted with recurrent episode of hypoglycemia. She has also hypokalemia. She has obviously insulin requiring type 2 diabetes, hypertension, hyperlipidemia, peripheral vascular disease and atrial fibrillation. PLAN: To continue with the D10W, monitor her blood sugar on a regular basis, probably hourly or every 2 hours, and once the blood sugar stabilizes, we can start her back on her regular scheduled insulin. MIK KEENAN MD DR: JOSE/corey JOB#: [id number] / [id number]
[2017-06-24 20:00] VITALS: BP 159/86
[2017-06-24 20:56] LABS: CALCIUM 9.1 mg/dL (8.5-10.1); CREATININE 1.2 mg/dL (0.6-1.0); GFR 43.3
[2017-06-24 21:00] VITALS: BP 120/91
[2017-06-24] MEDS ORDERED: LISINOPRIL 10 MG TABLET PO SCH (21:30)
[2017-06-24] MEDS: ATORVASTATIN CALCIUM 20 MG TABLET PO SCH (21:42)
[2017-06-24] MEDS: amLODIPine BESYLATE 2.5 MG TABLET PO SCH (21:43)
[2017-06-24] MEDS: LISINOPRIL 10 MG TABLET PO SCH (21:43)
[2017-06-24 22:00] VITALS: BP 180/67
[2017-06-24 23:00] VITALS: BP 125/90
[2017-06-25 00:01] VITALS: BP 111/57
[2017-06-25 06:00] VITALS: BP 135/78
[2017-06-25 06:35] LABS: HEMATOCRIT 32.5 % (36.0-47.0); HEMOGLOBIN 10.6 g/dL (12.0-15.5); RED BLOOD COUNT 3.6 x10^6/uL (3.50-5.40); RED CELL DISTRIBUTION WIDTH 15.5 % (11.5-14.5); WHITE BLOOD COUNT 10.7 x10^3/uL (4.0-11.0)
[2017-06-25 06:51] LABS: ALBUMIN 2.8 g/dL (3.4-5.0); ALBUMIN/GLOBULIN RATIO 0.7 (1.0-1.7); CALCIUM 9.1 mg/dL (8.5-10.1); GFR 53.5; POTASSIUM 3.7 mmol/L (3.5-5.1); TOTAL BILIRUBIN 0.7 mg/dL (0.2-1.0); TOTAL PROTEIN 6.8 g/dL (6.4-8.2)
[2017-06-25] MEDS: amLODIPine BESYLATE 2.5 MG TABLET PO SCH ×2 (08:00→21:05)
[2017-06-25] MEDS: FUROSEMIDE 20 MG TABLET PO SCH (08:01)
[2017-06-25] MEDS: CARVEDILOL 3.125 MG TABLET PO SCH ×2 (08:01→17:13)
[2017-06-25] MEDS: LISINOPRIL 10 MG TABLET PO SCH ×2 (08:01→21:04)
[2017-06-25] MEDS ORDERED: LISINOPRIL 10 MG TABLET PO SCH (09:00)
[2017-06-25] MEDS ORDERED: DEXTROSE 50% 25 GM / 50ML DISP.SYRIN. IV PRN (09:45)
[2017-06-25] MEDS: INSULIN LISPRO 300 UNITS/3 ML INSULN.PEN. SQ SCH ×2 (12:13→17:08)
[2017-06-25 14:00] VITALS: BP 126/70
[2017-06-25 15:00] VITALS: BP 122/57
[2017-06-25] MEDS ORDERED: RIVAROXABAN 10 MG TABLET. PO SCH (16:00)
[2017-06-25 16:02] VITALS: BP 153/68
[2017-06-25] MEDS ORDERED: INSULIN GLARGINE 300 UNITS/3 ML INSULN.PEN. SQ SCH (21:00)
[2017-06-25] MEDS: ATORVASTATIN CALCIUM 20 MG TABLET PO SCH (21:04)
[2017-06-25 23:00] VITALS: BP 151/69
--- NOTE | 2017-06-25 23:57 | PN ---
DATE: 06/25/2017 SUBJECTIVE: The patient is resting, slightly propped up in bed, in no apparent respiratory distress. She is awake, alert, very hard of hearing. She is complaining of pain in her left knee. Apparently, she was working yesterday in her front yard, cutting grass and developed hypoglycemia. Her blood sugar is elevated today and we are using insulin sliding scale. So far, all her vital signs are stable. Unfortunately, the computers are not working today; however we will switch her back to her usual regimen of 4 units before meals and 35 units in the morning. We will monitor her tonight and tomorrow, she can go she can be discharged home. MIK KEENAN MD DR: JOSE/corey JOB#: [id number] / [id number]
[2017-06-26 03:52] VITALS: BP 107/55
[2017-06-26 07:00] VITALS: BP 113/45
[2017-06-26] MEDS: LISINOPRIL 10 MG TABLET PO SCH (08:13)
[2017-06-26] MEDS: FUROSEMIDE 20 MG TABLET PO SCH (08:13)
[2017-06-26] MEDS: CARVEDILOL 3.125 MG TABLET PO SCH (08:14)
[2017-06-26] MEDS: amLODIPine BESYLATE 2.5 MG TABLET PO SCH (08:14)
[2017-06-26] MEDS: INSULIN LISPRO 300 UNITS/3 ML INSULN.PEN. SQ SCH ×2 (08:15→12:24)
[2017-06-26 08:24] LABS: ALBUMIN 2.7 g/dL (3.4-5.0); ALBUMIN/GLOBULIN RATIO 0.7 (1.0-1.7); GFR 53.5; POTASSIUM 3.8 mmol/L (3.5-5.1); TOTAL PROTEIN 6.8 g/dL (6.4-8.2)
[2017-06-26 08:46] LABS: BASO # 0.1 x10^3/uL (0.0-0.2); BASO % 1 % (0-3); EOS # 0.2 x10^3/uL (0.0-0.7); EOS % 2 % (0-3); HEMATOCRIT 31.9 % (36.0-47.0); HEMOGLOBIN 10.7 g/dL (12.0-15.5); LYMPH # 1.4 x10^3/uL (1.0-4.8); LYMPH % 13 % (24-48); MEAN CORPUSCULAR HEMOGLOBIN 30 pg (25-35); MEAN CORPUSCULAR HGB CONC 34 g/dL (31-37); MEAN CORPUSCULAR VOLUME 88 fL (79-100); MONO % 9 % (0-9); NEUT # 8.3 x10^3uL (1.8-7.7); NEUT % 76 % (31-73); PLATELET COUNT 200 x10^3/uL (140-400); RED BLOOD COUNT 3.63 x10^6/uL (3.50-5.40); RED CELL DISTRIBUTION WIDTH 15.8 % (11.5-14.5); WHITE BLOOD COUNT 10.8 x10^3/uL (4.0-11.0)
--- NOTE | 2017-06-26 09:05 | RAD ---
Bilateral knees, 6 views, 06/26/2017: HISTORY: Chronic knee pain On the left, there is subchondral sclerosis and narrowing of the medial compartment of the knee joint with moderate marginal spurring. There is moderate hypertrophic degenerative change at the patellofemoral articulation. Small periarticular calcifications suggest loose bodies. No recent fracture or dislocation is identified. A moderate-sized knee joint effusion is present. Arterial calcifications are noted. On the right, there is narrowing of the knee joint space, both medially and laterally. There is moderate subchondral sclerosis laterally with moderate marginal spurring. There are mild degenerative changes at the patellofemoral articulation. No fracture or dislocation is identified. There may be small joint effusion on the right. IMPRESSION: 1. Moderate degenerative changes at both knee joints, worse on the left, with a moderate sized left knee joint effusion. 2. No acute bony abnormality is detected. Electronically signed by: Edin Encarnacion MD (06/26/2017 9:02 AM) [facility]
[2017-06-26] MEDS ORDERED: INSU100I13 SQ (12:11)
--- NOTE | 2017-06-26 16:43 | DS ---
DATE OF DISCHARGE: 06/26/2017 The patient is a 77-year-old female patient who came to the Emergency Room with recurrent episode of hypoglycemia, and was started on D10. Her blood sugar has stabilized, was started back on her regular schedule of NovoLog 4 units before meals and cut down her Lantus to 30 units at bedtime. She remained stable. She apparently twisted her knee while gardening and we did x-ray of her left knee, which showed that she has severe osteoarthritis with also significant ____. She basically remained stable. Her blood sugar remained so far stable, has no further episode of hypoglycemia and a decision was made to discharge her home with home health. We did advise her to discontinue her methimazole and also make an appointment to be seen by an orthopedic surgeon. PHYSICAL EXAMINATION: GENERAL: When I saw her this morning, she was sitting on the edge of the bed comfortably, in no apparent respiratory distress, slightly pale, but no jaundice, cyanosis, or thyromegaly. No jugular venous distension. No limb edema. VITAL SIGNS: Her heart rate was 60, blood pressure 113/45, temperature was 98.7, respiratory rate was 20, and oxygen saturation was 95% on room air. HEAD, EYES, EARS, NOSE AND THROAT: Normocephalic, atraumatic. NECK: Supple. HEART: Showed normal first and second sounds. No gallop, rub or murmur. CHEST: Clear to auscultation. No crepitation or rhonchi. ABDOMEN: Distended, soft, nontender. No guarding or rigidity. No organomegaly. All hernial orifices intact. Bowel sounds normal. NEUROLOGIC: She was very hard of hearing. Otherwise, her cranial nerves intact. She actually is able to ambulate with a walker. Her intake was 900, output was 600. LABORATORY DATA: As of this morning showed a white cell count of 10,800, hemoglobin 11, hematocrit 32, MCV 88 and platelet count 200,000. Her chemistry showed a serum sodium 137, potassium 3.8, chloride 102, bicarbonate 28, anion gap of 7, BUN 20, creatinine 1, estimated GFR was 54 mL per minute. Her blood sugar was 182 mg/dL. Calcium was 9. Total bilirubin, AST, ALT, alkaline phosphatase were normal. Total protein was 6.8, albumin 2.7. DISCHARGE MEDICATIONS: She was discharged home to continue on following medications: Amlodipine-benazepril 2.5/10 one capsule twice a day, atorvastatin 20 mg at bedtime, carvedilol 3.125 mg twice a day, furosemide 20 mg once a day, NovoLog insulin 4 units before meals and levothyroxine sodium 50 mcg once a day, lisinopril 10 mg daily, rivaroxaban 20 mg daily, her Lantus was cut down to 30 units and we discontinued her methimazole. FINAL DISCHARGE DIAGNOSES: Recurrent episode of hypoglycemia, resolved; hypertension; hyperlipidemia; atrial fibrillation, rate controlled, well anticoagulated; peripheral vascular disease, osteoarthritis. MIK KEENAN MD DR: JOSE/corey JOB#: [id number] / [id number]
== END 2017-06-26 13:15 | disposition home or self-care (01) | DRG 639 ==
LOC: ER 13:09 → ICU 14:20 → ER 15:30
PROVIDERS: ADMIT Internal Medicine; ATTEND Internal Medicine
DX: E11.649 Type 2 diabetes mellitus with hypoglycemia without coma (principal); I48.91 Unspecified atrial fibrillation; E11.51 Type 2 diabetes mellitus with diabetic peripheral angiopathy without gangrene; E87.6 Hypokalemia; I10 Essential (primary) hypertension; E78.5 Hyperlipidemia, unspecified; R00.1 Bradycardia, unspecified; H91.90 Unspecified hearing loss, unspecified ear; M17.12 Unilateral primary osteoarthritis, left knee; Z90.710 Acquired absence of both cervix and uterus; Z90.722 Acquired absence of ovaries, bilateral; Z90.79 Acquired absence of other genital organ(s); Z89.421 Acquired absence of other right toe(s); Z89.411 Acquired absence of right great toe; Z79.4 Long term (current) use of insulin; Z83.3 Family history of diabetes mellitus; Z88.8 Allergy status to other drugs, medicaments and biological substances; Z79.899 Other long term (current) drug therapy; Z79.01 Long term (current) use of anticoagulants
CPT/HCPCS: 36415; 73562; 80048; 80053; 81001; 82533; 82947; 84443; 84484; 85025; 85027; 87641; 93005; 96374; J1815; 97110; 97530; 97535; 99285-25

== ENCOUNTER → 2017-07-31 | Outpatient (CLI) | payer MEDICARE ==
[~2017-07-31] MED LIST changes: +INSU100I13 SQ
--- NOTE | 2017-07-31 14:29 | RAD ---
CT LOWER EXTREMITY WO LEFT Indication: CT LEFT FOOT FOR DIABETIC ULCER Exposure: One or more of the following individualized dose reduction techniques were utilized for this examination: 1. Automated exposure control 2. Adjustment of the mA and/or kV according to patient size 3. Use of iterative reconstruction technique. Comparison: None are available. Contrast: None Severe degenerative changes are identified. There is medial and plantar flexion of the talus. Heel valgus. Pes planus. The distal phalanges demonstrate small size and distal tapering, could indicate chronic destruction. There are flexion deformities of the DIP joints. No overtly aggressive acute bone destruction is seen to suggest acute osteomyelitis. Note that the location of the ulcer is not provided, however. No evidence of an acute fracture. No evidence of a organized fluid collection or drainable abscess. There is some soft tissue density compatible with mild edema or cellulitis. Postsurgical changes at the distal fibula. IMPRESSION: 1. Severe degenerative changes with pes planovalgus. 2. No evidence of focal aggressive bone destruction to suggest acute osteomyelitis, although the area of the ulcer is not known. 3. No evidence of a drainable fluid collection. Electronically signed by: Doni Bhakta MD (07/31/2017 2:25 PM) [id number]
== END | disposition home or self-care (01) ==
LOC: CT 12:44
PROVIDERS: ATTEND Family Medicine
DX: E11.621 Type 2 diabetes mellitus with foot ulcer (principal)
CPT/HCPCS: 73700

== ENCOUNTER 2018-01-01 14:38 | Emergency (ER) | payer MEDICARE ==
[~2018-01-01] VITALS: Ht 315 cm; Wt 120.2 kg
[2018-01-01 15:24] LABS: BASO # 0.1 x10^3/uL (0.0-0.2); BASO % 1 % (0-3); EOS # 0.3 x10^3/uL (0.0-0.7); EOS % 3 % (0-3); HEMATOCRIT 38.2 % (36.0-47.0); HEMOGLOBIN 12.2 g/dL (12.0-15.5); LYMPH # 1.2 x10^3/uL (1.0-4.8); LYMPH % 13 % (24-48); MEAN CORPUSCULAR HEMOGLOBIN 29 pg (25-35); MEAN CORPUSCULAR HGB CONC 32 g/dL (31-37); MEAN CORPUSCULAR VOLUME 91 fL (79-100); MONO # 0.5 x10^3/uL (0.0-1.1); MONO % 6 % (0-9); NEUT # 7.6 x10^3uL (1.8-7.7); NEUT % 78 % (31-73); PLATELET COUNT 239 x10^3/uL (140-400); RED BLOOD COUNT 4.19 x10^6/uL (3.50-5.40); RED CELL DISTRIBUTION WIDTH 16.4 % (11.5-14.5); WHITE BLOOD COUNT 9.7 x10^3/uL (4.0-11.0)
--- NOTE | 2018-01-01 15:30 | RAD ---
PQRS Compliance statement: One or more of the following individualized dose reduction techniques were utilized for this examination: 1. Automated exposure control. 2. Adjustment of the mA and/or kV according to patient size. 3. Use of iterative reconstruction technique. Indication:FALL TODAY TECHNIQUE: CT head without IV contrast COMPARISON:None FINDINGS: No pathologic extra-axial or intra-axial fluid collection. Mild diffuse cerebral atrophy with ex vacuo dilation of the ventricles. The basal cisterns are within normal limits. No acute intracranial bleed. Confluent low-attenuation is seen in the periventricular and deep white matter. No focal loss of juan-white differentiation. The visualized orbits are within normal limits. No suspicious bony lesion. No acute cranial fractures. Visualized paranasal sinuses and mastoid air cells are clear. Axial atherosclerotic calcifications are seen of the bilateral cavernous segments of the ICA. IMPRESSION: 1. No acute intracranial process. 2. Moderate White matter changes most likely secondary to chronic microvascular ischemic disease. Indication:FALL TODAY TECHNIQUE: CT of the cervical spine without IV contrast with multiplanar reformats. COMPARISON:None FINDINGS: There is focal reversal of lower cervical spine lordosis most like a secondary to degenerative changes or positioning. Atlantoaxial joint interval is preserved. No compression deformities. The facet joints are in normal anatomic alignment. No acute fractures. Multilevel intervertebral disc space narrowing seen with endplate sclerosis and moderate osteophyte formation. The noncontrast appearance of the neck soft tissue is within normal limits. Clear lung apices. IMPRESSION: 1. No acute fractures. 2. Moderate multilevel degenerative disc disease in the cervical spine. Electronically signed by: Hollis Velasquez DO (01/01/2018 3:27 PM) [id number]
--- NOTE | 2018-01-01 15:32 | RAD ---
CT PELVIS WO CONTRAST Indication: FALL TODAY, BILATERAL LEG DEFORMITIES. Exposure: One or more of the following individualized dose reduction techniques were utilized for this examination: 1. Automated exposure control 2. Adjustment of the mA and/or kV according to patient size 3. Use of iterative reconstruction technique. Comparison: None are available. Contrast: None Fracture of the right femoral neck. Mild lateral and superior displacement of the distal fragment relative to the proximal fragment. Mild anterior angulation of the fracture. The left proximal femur is intact. The obturator rings appear intact. Mild degenerative changes are seen at both hips, pubic symphysis and sacroiliac joints. No evidence of dislocation. Small subchondral lucency at the right femoral head is most likely a cyst. Limited visualization of lower spine demonstrates severe spondylosis and spondylolisthesis. There is also lumbar stenosis. Small fat-containing anterior abdominal wall hernia at the umbilicus. The partially seen colon demonstrates diverticulosis. IMPRESSION: 1. Mildly displaced posttraumatic right femoral neck fracture. 2. Severe lumbar spondylosis and spondylolisthesis with stenosis. Electronically signed by: Doni Bhakta MD (01/01/2018 3:29 PM) [id number]
--- NOTE | 2018-01-01 15:41 | PHYS DOC ---
Past History Past Medical History: A-Fib, Diabetes, Hypertension, Other Past Surgical History: No Surgical History Alcohol Use: None Drug Use: None Adult General Chief Complaint Chief Complaint: MECHANICAL FALL HPI HPI Patient is a 77 year old female who brought in by EMS after fall and right hip pain. Patient is very hard of hearing and her states she tried to get out of the car and had a fall from a standing position and landed on her right side without loss of consciousness. Patient was not able to ambulate and complaining of pain in right hip. Last tetanus immunization is unknown. Review of Systems Review of Systems Constitutional: Denies fever or chills [] Eyes: Denies change in visual acuity, redness, or eye pain [] HENT: Denies nasal congestion or sore throat [] Respiratory: Denies cough or shortness of breath [] Cardiovascular: No additional information not addressed in HPI [] GI: Denies abdominal pain, nausea, vomiting, bloody stools or diarrhea [] : Denies dysuria or hematuria [] Musculoskeletal: Denies back pain , reports joint pain [] Integument: Denies rash or skin lesions [] Neurologic: Denies headache, focal weakness or sensory changes [] Endocrine: Denies polyuria or polydipsia [] All other systems were reviewed and found to be within normal limits, except as documented in this note. Current Medications Current Medications Current Medications Medications (Trade) Dose Ordered Sig/Ángel Start Time Stop Time Status Last Admin Dose Admin Fentanyl Citrate (Fentanyl 2ml Vial) 50 mcg 1X ONCE 01/01/18 14:45 01/01/18 14:47 DC 01/01/18 15:04 50 MCG Allergies Allergies Allergies Coded Allergies Type Severity Reaction Last Updated Verified celecoxib Allergy Mild Unknown 05/21/17 Yes I S O L A T I O N *CONTACT* Allergy Unknown 06/25/17 Yes Physical Exam Physical Exam Constitutional: Well developed, well nourished, mild distress, non-toxic appearance. [] HENT: Normocephalic, atraumatic, oropharynx moist, no oral exudates, nose normal. [] Eyes: PERRLA, EOMI, conjunctiva normal, no discharge. [] Neck: Normal range of motion, no tenderness, supple, no stridor. [] Cardiovascular:Heart rate regular rhythm, no murmur [] Lungs & Thorax: Bilateral breath sounds clear to auscultation [] Abdomen: Bowel sounds normal, soft, no tenderness, no masses, no pulsatile masses. [] Skin: Warm, dry, no erythema, no rash. [] Back: No tenderness, no CVA tenderness. [] Extremities: Right lower extremity with shortening and external rotation and limited range of motion, no neurovascular deficit, painful right hip Neurologic: Alert and oriented X 3, normal sensory function, no focal deficits noted. [] Psychologic: Affect normal, judgement normal, mood normal. [] Current Patient Data Vital Signs Vital Signs Date Time Temp Pulse Resp B/P (MAP) Pulse Ox O2 Delivery O2 Flow Rate FiO2 01/01/18 15:04 94 Room Air 01/01/18 14:49 98.2 75 18 Lab Results Laboratory Tests Test 01/01/18 15:00 White Blood Count 9.7 x10^3/uL (4.0-11.0) Red Blood Count 4.19 x10^6/uL (3.50-5.40) Hemoglobin 12.2 g/dL (12.0-15.5) Hematocrit 38.2 % (36.0-47.0) Mean Corpuscular Volume 91 fL (79-100) Mean Corpuscular Hemoglobin 29 pg (25-35) Mean Corpuscular Hemoglobin Concent 32 g/dL (31-37) Red Cell Distribution Width 16.4 % (11.5-14.5) H Platelet Count 239 x10^3/uL (140-400) Neutrophils (%) (Auto) 78 % (31-73) H Lymphocytes (%) (Auto) 13 % (24-48) L Monocytes (%) (Auto) 6 % (0-9) Eosinophils (%) (Auto) 3 % (0-3) Basophils (%) (Auto) 1 % (0-3) Neutrophils # (Auto) 7.6 x10^3uL (1.8-7.7) Lymphocytes # (Auto) 1.2 x10^3/uL (1.0-4.8) Monocytes # (Auto) 0.5 x10^3/uL (0.0-1.1) Eosinophils # (Auto) 0.3 x10^3/uL (0.0-0.7) Basophils # (Auto) 0.1 x10^3/uL (0.0-0.2) EKG EKG [] Radiology/Procedures Radiology/Procedures [address] [address] IMAGING REPORT Signed PATIENT: DORINDA CRUZ ACCOUNT: [id number] : 1940 LOCATION: ER AGE: 77 SEX: F EXAM STATUS: REG ER ORD. PHYSICIAN: DAPHNE SPAIN MD REASON: Possible fracture PROCEDURE: CT PELVIS WO CONTRAST CT PELVIS WO CONTRAST Indication: FALL TODAY, BILATERAL LEG DEFORMITIES. Exposure: One or more of the following individualized dose reduction techniques were utilized for this examination: 1. Automated exposure control 2. Adjustment of the mA and/or kV according to patient size 3. Use of iterative reconstruction technique. Comparison: None are available. Contrast: None Fracture of the right femoral neck. Mild lateral and superior displacement of the distal fragment relative to the proximal fragment. Mild anterior angulation of the fracture. The left proximal femur is intact. The obturator rings appear intact. Mild degenerative changes are seen at both hips, pubic symphysis and sacroiliac joints. No evidence of dislocation. Small subchondral lucency at the right femoral head is most likely a cyst. Limited visualization of lower spine demonstrates severe spondylosis and spondylolisthesis. There is also lumbar stenosis. Small fat-containing anterior abdominal wall hernia at the umbilicus. The partially seen colon demonstrates diverticulosis. IMPRESSION: 1. Mildly displaced posttraumatic right femoral neck fracture. 2. Severe lumbar spondylosis and spondylolisthesis with stenosis. Electronically signed by: Doni Bhakta MD (01/01/2018 3:29 PM) [facility] DICTATED AND SIGNED BY: DONI BHAKTA MD DATE: 01/01/18 1523 CC: MAHI FOX MD; DAPHNE SPAIN MD ~ [address] [address] IMAGING REPORT Signed PATIENT: DORINDA CRUZ ACCOUNT: [id number] : 1940 LOCATION: ER AGE: 77 SEX: F EXAM STATUS: REG ER ORD. PHYSICIAN: DAPHNE SPAIN MD REASON: fall PROCEDURE: CT HEAD AND CERVICAL SPINE [facility] Compliance statement: One or more of the following individualized dose reduction techniques were utilized for this examination: 1. Automated exposure control. 2. Adjustment of the mA and/or kV according to patient size. 3. Use of iterative reconstruction technique. Indication:FALL TODAY TECHNIQUE: CT head without IV contrast COMPARISON:None FINDINGS: No pathologic extra-axial or intra-axial fluid collection. Mild diffuse cerebral atrophy with ex vacuo dilation of the ventricles. The basal cisterns are within normal limits. No acute intracranial bleed. Confluent low-attenuation is seen in the periventricular and deep white matter. No focal loss of juan-white differentiation. The visualized orbits are within normal limits. No suspicious bony lesion. No acute cranial fractures. Visualized paranasal sinuses and mastoid air cells are clear. Axial atherosclerotic calcifications are seen of the bilateral cavernous segments of the ICA. IMPRESSION: 1. No acute intracranial process. 2. Moderate White matter changes most likely secondary to chronic microvascular ischemic disease. Indication:FALL TODAY TECHNIQUE: CT of the cervical spine without IV contrast with multiplanar reformats. COMPARISON:None FINDINGS: There is focal reversal of lower cervical spine lordosis most like a secondary to degenerative changes or positioning. Atlantoaxial joint interval is preserved. No compression deformities. The facet joints are in normal anatomic alignment. No acute fractures. Multilevel intervertebral disc space narrowing seen with endplate sclerosis and moderate osteophyte formation. The noncontrast appearance of the neck soft tissue is within normal limits. Clear lung apices. IMPRESSION: 1. No acute fractures. 2. Moderate multilevel degenerative disc disease in the cervical spine. Electronically signed by: Hollis Velasquez DO (01/01/2018 3:27 PM) [id number] DICTATED AND SIGNED BY: HOLLIS VELASQUEZ DO DATE: 01/01/18 1522 CC: MAHI FOX MD; DAPHNE SPAIN MD ~ [place] [address] IMAGING REPORT Signed PATIENT: DORINDA CRUZ ACCOUNT: [id number] : 1940 LOCATION: ER AGE: 77 SEX: F EXAM STATUS: REG ER ORD. PHYSICIAN: DAPHNE SPAIN MD REASON: fall PROCEDURE: SHOULDER 2+V RIGHT EXAM: 2 views right shoulder DATE: 01/01/2018 3:45 PM INDICATION: RIGHT SHOULDER DISLOCATION POST FALL. COMPARISON: No Prior FINDINGS/ IMPRESSION: Anterior-inferior dislocation of the right humeral head. Mild AC joint degenerative change. Electronically signed by: Jani Benavidez MD (01/01/2018 4:44 PM) [facility] DICTATED AND SIGNED BY: JANI BENAVIDEZ MD DATE: 01/01/18 1643 CC: MAHI FOX MD; DAPHNE SPAIN MD ~ Course & Med Decision Making Course & Med Decision Making Pertinent Labs and Imaging studies reviewed. (See chart for details) Evaluation of patient in ER showed 77-year-old female patient with an accidental fall and right hip injury with right lower extremity shortening and external rotation. Patient had mildly displaced femoral neck fracture. Patient treated with fentanyl and felt better. Dr. Johnson accepted transfer to [facility] at [address] Beckett nurse practitioner informed at 1552 and with plan to do surgery tomorrow. Patient and her informed about plan of care and is for transfer. Patient had right shoulder dislocation that was not reducible with conscious sedation and manipulation at 1650. Dr Beckett was paged and his nurse was responded and the nurse plans to inform him immediately. Dragon Disclaimer Dragon Disclaimer This electronic medical record was generated, in whole or in part, using a voice recognition dictation system. Departure Departure: Impression: Primary Impression: Closed displaced fracture of right femoral neck Additional Impressions: Fall Renal insufficiency Hearing deficit Anterior shoulder dislocation Disposition: T-TRM HOSP ([facility] at 1528) Admitting Physician: Erin Johnson (accepted transfer at [facility] at 1527) Condition: IMPROVED Referrals: MAHI FOX MD (PCP) RISKS/ALTERNATIVES Risks/Alternatives Risks and alternatives of this type of sedation and procedure discussed with: RISK/ALTERNATIVES DISCUSSED: Patient H & P ON CHART H & P H & P on chart and reviewed for co-morbid conditions and appropriate labs. H&P ON CHART: Yes STATUS PREG STATUS ASSESSED: Yes MEDS/ALLERGIES REVIEWED Meds/Allergies Reviewed Medications and Allergies including time and route of recently administered narcotics and sedatives. MEDS/ALLERGIES REVIEWED: Yes ASA RATING ASA RATING: II AIRWAY ASSESSMENT Airway Assessment Airway patency, oral function limitations, presence of caps, crowns, dentures, partials, and ability to extend neck assessed. AIRWAY ASSESSMENT: Yes MALLAMPATI SCORE MALLAMPATI SCORE: II PRE-SEDATION ASSESSMENT PRE-SEDATION PHYSICAL: Yes Joint Reduction Procedure Joint Indication: Right shoulder dislocation Consent: obtained from patient Procedure: The pre-reduction exam showed right shoulder dislocation. The patient was placed in a semi-supine] position. Anesthesia/pain control etomidate and fentanyl was given and reduction of the right shoulder was performed by manipulation without success .post reduction films did not show reduction. A post-reduction exam revealed [NEURO EXAM WAS A STABLE]. The affected area was immobilized with older immobilizer The patient tolerated the procedure well Complications: [COMPLICATIONS] Problem Qualifiers DAPHNE SPAIN MD Jan 01, 2018 15:41
[2018-01-01 15:44] LABS: ALBUMIN 3.8 g/dL (3.4-5.0); ALBUMIN/GLOBULIN RATIO 0.9 (1.0-1.7); CALCIUM 9.7 mg/dL (8.5-10.1); CREATININE 1.2 mg/dL (0.6-1.0); GFR 43.3; POTASSIUM 3.9 mmol/L (3.5-5.1); TOTAL BILIRUBIN 0.7 mg/dL (0.2-1.0); TOTAL PROTEIN 7.9 g/dL (6.4-8.2)
[2018-01-01 16:16] LABS: BILIRUBIN,URINE NEG (NEG); CLARITY,URINE CLEAR; COLOR,URINE YELLOW; GLUCOSE,URINE NEG (NEG); NITRITE,URINE NEG (NEG); UROBILINOGEN,URINE 1 mg/dL (0.2 mg/dL)
[2018-01-01 16:17] LABS: BACTERIA,URINE FEW /HPF (0-FEW); HYALINE CASTS, URINE OCC /HPF; SQUAMOUS EPITHELIAL CELL,UR OCC /LPF; WBC,URINE OCC /HPF (0-4)
--- NOTE | 2018-01-01 16:29 | RAD ---
Single view of the chest. 01/01/2018 2:38 PM Indication: FALL TODAY Comparison: None available Findings: Right shoulder is dislocated. No definite fracture is seen though dedicated shoulder radiographs recommended. No pneumothorax, pleural effusion, or focal consolidative infiltrate is seen. Diffuse sagittal coarsening is noted, most likely chronic. The heart is enlarged. The aorta is calcified. IMPRESSION: 1. Right shoulder dislocation. Dedicated shoulder radiographs recommended. 2. Cardiomegaly 3. Likely chronic diffuse interstitial coarsening Findings called to the emergency room physician at 4:20 PM Electronically signed by: Addison Samson MD (01/01/2018 4:26 PM) [id number]
[2018-01-01] MEDS ORDERED: IV NORMAL SALINE 1,000ML 1,000 ML IV ONE (16:45)
--- NOTE | 2018-01-01 16:48 | RAD ---
EXAM: 2 views right shoulder DATE: 01/01/2018 3:45 PM INDICATION: RIGHT SHOULDER DISLOCATION POST FALL. COMPARISON: No Prior FINDINGS/ IMPRESSION: Anterior-inferior dislocation of the right humeral head. Mild AC joint degenerative change. Electronically signed by: Jani Quiles MD (01/01/2018 4:44 PM) [facility]
[2018-01-01] MEDS ORDERED: ETOMIDATE 40 MG/20 ML VIAL. IV ONE (17:00)
[2018-01-01 17:26] VITALS: BP 153/70
--- NOTE | 2018-01-01 17:43 | RAD ---
SHOULDER 2+V RIGHT History: POST REDUCTION OF RIGHT SHOULDER.. Comparison: Earlier the same day at 3:45 PM There appears to be persistent anteroinferior dislocation of the humeral head at the glenohumeral joint, accounting for difference in projection on the 2 studies. Degenerative changes at the acromioclavicular joint are again identified. IMPRESSION: Persistent anterior glenohumeral joint dislocation. Electronically signed by: Doni Bhakta MD (01/01/2018 5:40 PM) [facility]
== END 2018-01-01 17:15 | disposition short-term general hospital (02) ==
LOC: ER 14:38
DX: S72.091A Other fracture of head and neck of right femur, initial encounter for closed fracture (principal); S43.014A Anterior dislocation of right humerus, initial encounter; N28.9 Disorder of kidney and ureter, unspecified; I48.91 Unspecified atrial fibrillation; E11.9 Type 2 diabetes mellitus without complications; I10 Essential (primary) hypertension; H91.90 Unspecified hearing loss, unspecified ear; M50.30 Other cervical disc degeneration, unspecified cervical region; M47.896 Other spondylosis, lumbar region; Z91.041 Radiographic dye allergy status; Z88.8 Allergy status to other drugs, medicaments and biological substances; W18.30XA Fall on same level, unspecified, initial encounter; Y93.89 Activity, other specified; Y92.89 Other specified places as the place of occurrence of the external cause; Y99.8 Other external cause status
CPT/HCPCS: 23650; 36415; 51702; 70450; 71045; 72125; 72192; 73030; 80053; 81001; 85025; 85610; 99285; J3010; 96374; 96375; 99152; J7030

== ENCOUNTER 2020-02-11 20:09 | Emergency (ER) | payer MEDICARE ==
[~2020-02-11] VITALS: Ht 162.6 cm; Wt 81.8 kg
[~2020-02-11 20:09] MED LIST changes: +AMLO1CAP42 PO; -AMLO1CAP7 PO; -CARV3.122 PO; +CARV3.1230 PO
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
[2020-02-11 21:10] VITALS: BP 136/76
== END 2020-02-11 21:10 | disposition home or self-care (01) ==
LOC: ER 20:09
DX: R41.0 Disorientation, unspecified (principal); R45.1 Restlessness and agitation; E11.9 Type 2 diabetes mellitus without complications; I48.91 Unspecified atrial fibrillation; M19.90 Unspecified osteoarthritis, unspecified site; I10 Essential (primary) hypertension; I73.9 Peripheral vascular disease, unspecified; E03.9 Hypothyroidism, unspecified; H91.90 Unspecified hearing loss, unspecified ear; Z87.81 Personal history of (healed) traumatic fracture; Z88.8 Allergy status to other drugs, medicaments and biological substances
CPT/HCPCS: 82947; 99283

== ENCOUNTER 2020-02-27 13:49 | Inpatient (IN) | payer MEDICARE ==
[~2020-02-27] VITALS: Ht 162.6 cm; Wt 70.8 kg
[2020-02-27 14:33] LABS: BGAS PH 7.5 (7.35-7.45)
--- NOTE | 2020-02-27 14:40 | EKG ---
[address] [address] Test Date: 2020-02-27 Test Time: 14:12:12 Pat Name: DORINDA CRUZ Department: Room: Gender: F Product Safety Engineer: DWIGHT : 1940 Requested By: MAHIN RAMIRES Order Number: [id number] Reading MD: Measurements Intervals [place] Rate: 61 P: MS: QRS: -41 QRSD: 100 T: -29 QT: 434 QTc: 443 Interpretive Statements IRREGULAR RHYTHM, NO P-WAVE FOUND ABNORMAL LEFT AXIS DEVIATION LOW LIMB LEAD VOLTAGE QRS(T) CONTOUR ABNORMALITY CONSIDER ANTEROSEPTAL MYOCARDIAL DAMAGE CONSISTENT WITH INFERIOR INFARCT AGE UNDETERMINED ABNORMAL ECG RI6.02 No previous ECG available for comparison
--- NOTE | 2020-02-27 14:50 | RAD ---
AP chest. HISTORY: Hypoxia AP view was taken of the chest. Heart is enlarged. There is a reversed total shoulder prosthesis on t he right. There is arthritis in the left shoulder. There are hazy bilateral infiltrates which have wo rsened since the old studies. Atypical or viral pneumonia is possible. Other etiologies for interstit ial infiltrates are possible or pulmonary fibrosis with worsening. IMPRESSION: 1. Bilateral hazy infiltrates. 2. Cardiomegaly. Electronically signed by: Collin Dill MD (02/27/2020 2:38 PM) [facility]
[2020-02-27 15:00] LABS: CALCIUM 9.4 mg/dL (8.5-10.1); CREATININE 1.3 mg/dL (0.6-1.0); GFR 39.3; POTASSIUM 4.6 mmol/L (3.5-5.1)
[2020-02-27 15:04] LABS: BACTERIA,URINE FEW /HPF (0-FEW); BILIRUBIN,URINE NEG (NEG); CLARITY,URINE CLEAR; COLOR,URINE YELLOW; GLUCOSE,URINE >=1000 mg/dL (NEG); NITRITE,URINE POS (NEG); UROBILINOGEN,URINE 0.2 mg/dL (0.2 mg/dL)
[2020-02-27 15:06] LABS: ALBUMIN/GLOBULIN RATIO 0.6 (1.0-1.7); MAGNESIUM 1.5 mg/dL (1.8-2.4); TOTAL BILIRUBIN 1.2 mg/dL (0.2-1.0)
[2020-02-27] MEDS ORDERED: AZITHROMYCIN 500 MG in IV NORMAL SALINE 250ML 250 ML IV ONE (15:15)
--- NOTE | 2020-02-27 15:22 | RAD ---
CT brain without contrast. HISTORY: Altered mental status CT scan the brain was done without contrast. Sinuses are clear. A skull fracture is not identified. M astoids are normally aerated. There is mild atrophy. There is no intracranial hemorrhage or subdural hematoma. There is no mass or shift of the midline. Ventricles are mildly dilated probably related at rophy. There is decreased density in the white matter from chronic microvascular changes. An acute CV A is not identified. IMPRESSION: 1. Atrophy and chronic white matter changes. 2. No intracranial hemorrhage or acute CVA noted. PQRS Compliance Statement: One or more of the following individualized dose reduction techniques were utilized for this examinat ion: 1. Automated exposure control 2. Adjustment of the mA and/or kV according to patient size 3. Use of iterative reconstruction technique Electronically signed by: Collin Dill MD (02/27/2020 3:19 PM) [facility]
[2020-02-27] MEDS ORDERED: IV NORMAL SALINE 250ML 250 ML ONE (15:24)
[2020-02-27] MEDS ORDERED: AZITHROMYCIN 500 MG VIAL. IV ONE (15:24)
[2020-02-27 15:25] LABS: BASO # 0.1 x10^3/uL (0.0-0.2); BASO % 1 % (0-3); EOS % 0 % (0-3); HEMATOCRIT 38.4 % (36.0-47.0); HEMOGLOBIN 12.6 g/dL (12.0-15.5); LYMPH # 0.3 x10^3/uL (1.0-4.8); LYMPH % 3 % (24-48); MEAN CORPUSCULAR HEMOGLOBIN 30 pg (25-35); MEAN CORPUSCULAR HGB CONC 33 g/dL (31-37); MEAN CORPUSCULAR VOLUME 91 fL (79-100); MONO # 0.4 x10^3/uL (0.0-1.1); MONO % 3 % (0-9); NEUT # 10.5 x10^3uL (1.8-7.7); NEUT % 93 % (31-73); PLATELET COUNT 302 x10^3/uL (140-400); RED CELL DISTRIBUTION WIDTH 14.3 % (11.5-14.5); WHITE BLOOD COUNT 11.4 x10^3/uL (4.0-11.0)
--- NOTE | 2020-02-27 15:45 | PHYS DOC ---
Past History Past Medical History: A-Fib, Arthritis, Diabetes, Hypertension, Other (DONI RAMIRES APRN) Past Surgical History: Hip Replacement, Other (DONI RAMIRES APRN) Alcohol Use: None Drug Use: None (DONI RAMIRES APRN) Adult General Chief Complaint Chief Complaint: SHORTNESS OF BREATH HPI HPI Patient is a 79-year-old female presents to the emergency department by EMS. HPI history by EMS regulatory services consultant. EMS regulatory services consultant states that patient's family was concerned that she was having symptoms of failure to thrive at home, noticed she was having periods of incontinence, noticed that she was having periods of confusion while trying to give her own insulin medications at home. Paramedics states that the patient's just hours prior to their arrival to pick patient up to bring to ER. Stating patient's was hospice/long-term care at home and was expected. Novelty Maker states that the family indicated to him that both son and [id number] are Covid19 positive and work taking care of their dying father and attempting to socially isolate themselves from their elderly mother to prevent giving her the COVID-19 virus. After their father this morning they went to check on their mother and noticed she was wet from urine and acting confused. This is when they called the ambulance and had them bring her to the emergency department here at [facility]. Patient has a history of atrial fibrillation, insulin-dependent diabetes, and hypertension. Patient has a history of extreme hard of hearing, but cannot communicate using a writing board. Using pen and paper, patient states that she does not feel good, patient states that she does feel short of breath, patient does deny chest pain, patient denies abdominal pain. Patient states that she has not checked her temperature at home. (DONI RAMIRES APRN) Review of Systems Review of Systems 14 body systems of review of systems have been reviewed. See HPI for pertinent positives and negative responses, otherwise all other systems are negative, nonpertinent or noncontributory. (DONI RAMIRES APRN) Current Medications Current Medications Current Medications Medications (Trade) Dose Ordered Sig/Ángel Start Time Stop Time Status Last Admin Dose Admin Azithromycin (Zithromax) 500 mg STK-MED ONCE 02/27/20 15:24 02/27/20 15:25 DC Azithromycin 500 mg/Sodium Chloride 250 ml @ 250 mls/hr 1X ONCE 02/27/20 15:15 02/27/20 16:14 02/27/20 15:28 250 MLS/HR Sodium Chloride 250 ml @ As Directed STK-MED ONCE 02/27/20 15:24 02/27/20 15:25 DC (DONI RAMIRES APRN) Allergies Allergies Allergies Coded Allergies Type Severity Reaction Last Updated Verified celecoxib Allergy Mild Unknown 05/21/17 Yes I S O L A T I O N *CONTACT* Allergy Unknown 06/25/17 Yes (DONI RAMIRES APRN) Physical Exam Physical Exam Constitutional: Well developed, well nourished, no acute distress, non-toxic appearance. Patient appeared short of breath and dyspneic during initial physical exam upon patient arrival, however patient placed on nonrebreather mask and 100% FiO2 and patient's appearance improved and is no longer dyspneic. Patient hard of hearing, communicates with writing. HENT: Normocephalic, atraumatic, bilateral external ears normal, oropharynx moist, no oral exudates, nose normal. Eyes: PERRLA, EOMI, conjunctiva normal, no discharge. Neck: Normal range of motion, no tenderness, supple, no stridor. No nuchal rigidity no meningismus signs. Cardiovascular: No murmur noted per auscultation, heart rate irregular rhythm consistent with atrial fibrillation as shown on 5-lead EKG bedside monitor. Lungs & Thorax: Bilateral breath sounds clear to auscultation upper lobes, diminished lower posterior lobes to auscultation. No adventitious lung sounds appreciated. Abdomen: Bowel sounds normal, soft, no tenderness, no masses, no pulsatile masses. Skin: Warm, dry, no erythema, no rash. Surgical scars near left hip area well- healed. Back: No tenderness, no CVA tenderness. Extremities: No tenderness, no cyanosis, no clubbing, ROM intact, no edema. Neurologic: Alert and oriented to self, place, and date., normal motor function, normal sensory function, no focal deficits noted. Psychologic: Affect normal, judgement normal, mood normal. (DONI RAMIRES APRN) Current Patient Data Vital Signs Vital Signs Date Time Temp Pulse Resp B/P (MAP) Pulse Ox O2 Delivery O2 Flow Rate FiO2 02/27/20 15:24 74 38 125/55 (78) 90 NonRebreather Mask 15.0 02/27/20 13:50 97.9 Lab Results Laboratory Tests Test 02/27/20 14:02 02/27/20 14:28 02/27/20 14:38 Blood Gas pH 7.50 Blood Gas PCO2 25 mmHg Blood Gas PO2 57 mmHg Blood Gas HCO3 19 mmol/L Arterial Bld O2 Saturation (Calc) 93 % FiO2 100 % White Blood Count 11.4 x10^3/uL Red Blood Count 4.20 x10^6/uL Hemoglobin 12.6 g/dL Hematocrit 38.4 % Mean Corpuscular Volume 91 fL Mean Corpuscular Hemoglobin 30 pg Mean Corpuscular Hemoglobin Concent 33 g/dL Red Cell Distribution Width 14.3 % Platelet Count 302 x10^3/uL Neutrophils (%) (Auto) 93 % Lymphocytes (%) (Auto) 3 % Monocytes (%) (Auto) 3 % Eosinophils (%) (Auto) 0 % Basophils (%) (Auto) 1 % Neutrophils # (Auto) 10.5 x10^3uL Lymphocytes # (Auto) 0.3 x10^3/uL Monocytes # (Auto) 0.4 x10^3/uL Eosinophils # (Auto) 0.0 x10^3/uL Basophils # (Auto) 0.1 x10^3/uL Sodium Level 129 mmol/L Potassium Level 4.6 mmol/L Chloride Level 91 mmol/L Carbon Dioxide Level 24 mmol/L Anion Gap 14 Blood Urea Nitrogen 28 mg/dL Creatinine 1.3 mg/dL Estimated GFR (Cockcroft-Gault) 39.3 BUN/Creatinine Ratio 22 Glucose Level 454 mg/dL Lactic Acid Level 2.2 mmol/L Calcium Level 9.4 mg/dL Phosphorus Level 3.0 mg/dL Magnesium Level 1.5 mg/dL Total Bilirubin 1.2 mg/dL Aspartate Amino Transf (AST/SGOT) 23 U/L Alanine Aminotransferase (ALT/SGPT) 12 U/L Alkaline Phosphatase 94 U/L Ammonia < 10 mcmol/L Lactate Dehydrogenase 504 U/L Troponin I Quantitative < 0.017 ng/mL Total Protein 8.0 g/dL Albumin 3.0 g/dL Albumin/Globulin Ratio 0.6 Acetone Level Neg Urine Collection Type Unknown Urine Color Yellow Urine Clarity Clear Urine pH 5.5 Urine Specific [place] 1.010 Urine Protein 100 mg/dl Urine Glucose (UA) >=1000 mg/dL Urine Ketones (Stick) 15 mg/dL Urine Blood Small Urine Nitrite Pos Urine Bilirubin Neg Urine Urobilinogen Dipstick 0.2 mg/dL Urine Leukocyte Esterase Small Urine RBC 6-10 /HPF Urine WBC 5-10 /HPF Urine Squamous Epithelial Cells None /LPF Urine Bacteria Few /HPF Current Medications Medications (Trade) Dose Ordered Sig/Ángel Route PRN Reason Start Time Stop Time Status Last Admin Dose Admin Azithromycin 500 mg/Sodium Chloride 250 ml @ 250 mls/hr 1X ONCE IV 02/27/20 15:15 02/27/20 16:14 02/27/20 15:28 Sodium Chloride 250 ml @ As Directed STK-MED ONCE .ROUTE 02/27/20 15:24 02/27/20 15:25 DC Azithromycin (Zithromax) 500 mg STK-MED ONCE IV 02/27/20 15:24 02/27/20 15:25 DC Ceftriaxone Sodium 1 gm/ Sodium Chloride 50 ml @ 100 mls/hr 1X ONCE IV 02/27/20 15:45 02/27/20 16:14 Laboratory Tests Test 02/27/20 14:02 02/27/20 14:28 02/27/20 14:38 Blood pH 7.50 (7.35-7.45) H Blood Gas PCO2 25 mmHg (35-45) L Blood Gas PO2 57 mmHg (71-100) L Blood Gas HCO3 19 mmol/L (22-26) L Arterial Bld O2 Saturation (Calc) 93 % (92-99) FiO2 100 % White Blood Count 11.4 x10^3/uL (4.0-11.0) H Red Blood Count 4.20 x10^6/uL (3.50-5.40) Hemoglobin 12.6 g/dL (12.0-15.5) Hematocrit 38.4 % (36.0-47.0) Mean Corpuscular Volume 91 fL (79-100) Mean Corpuscular Hemoglobin 30 pg (25-35) Mean Corpuscular Hemoglobin Concent 33 g/dL (31-37) Red Cell Distribution Width 14.3 % (11.5-14.5) Platelet Count 302 x10^3/uL (140-400) Neutrophils (%) (Auto) 93 % (31-73) H Lymphocytes (%) (Auto) 3 % (24-48) L Monocytes (%) (Auto) 3 % (0-9) Eosinophils (%) (Auto) 0 % (0-3) Basophils (%) (Auto) 1 % (0-3) Neutrophils # (Auto) 10.5 x10^3uL (1.8-7.7) H Lymphocytes # (Auto) 0.3 x10^3/uL (1.0-4.8) L Monocytes # (Auto) 0.4 x10^3/uL (0.0-1.1) Eosinophils # (Auto) 0.0 x10^3/uL (0.0-0.7) Basophils # (Auto) 0.1 x10^3/uL (0.0-0.2) Sodium Level 129 mmol/L (136-145) L Potassium Level 4.6 mmol/L (3.5-5.1) Chloride Level 91 mmol/L (98-107) L Carbon Dioxide Level 24 mmol/L (21-32) Anion Gap 14 (6-14) Blood Urea Nitrogen 28 mg/dL (7-20) H Creatinine 1.3 mg/dL (0.6-1.0) H Estimated GFR (Cockcroft-Gault) 39.3 BUN/Creatinine Ratio 22 (6-20) H Glucose Level 454 mg/dL (70-99) H Lactic Acid Level 2.2 mmol/L (0.4-2.0) H Calcium Level 9.4 mg/dL (8.5-10.1) Phosphorus Level 3.0 mg/dL (2.6-4.7) Magnesium Level 1.5 mg/dL (1.8-2.4) L Total Bilirubin 1.2 mg/dL (0.2-1.0) H Aspartate Amino Transferase (AST) 23 U/L (15-37) Alanine Aminotransferase (ALT) 12 U/L (14-59) L Alkaline Phosphatase 94 U/L (46-116) Ammonia < 10 mcmol/L (11-34) L Lactate Dehydrogenase 504 U/L (81-234) H Troponin I Quantitative < 0.017 ng/mL (0-0.055) Total Protein 8.0 g/dL (6.4-8.2) Albumin 3.0 g/dL (3.4-5.0) L Albumin/Globulin Ratio 0.6 (1.0-1.7) L Acetone Level Neg (NEG) Urine Collection Type Unknown Urine Color Yellow Urine Clarity Clear Urine pH 5.5 Urine Specific [place] 1.010 Urine Protein 100 mg/dl (NEG-TRACE) Urine Glucose (UA) >=1000 mg/dL (NEG) Urine Ketones (Stick) 15 mg/dL (NEG) Urine Blood Small (NEG) Urine Nitrite Pos (NEG) Urine Bilirubin Neg (NEG) Urine Urobilinogen Dipstick 0.2 mg/dL (0.2 mg/dL) Urine Leukocyte Esterase Small (NEG) Urine RBC 6-10 /HPF (0-2) Urine WBC 5-10 /HPF (0-4) Urine Squamous Epithelial Cells None /LPF Urine Bacteria Few /HPF (0-FEW) (DONI RAMIRES APRN) EKG EKG EKG performed at 1412 I house respiratory therapy staff, shows irregular heart rate 61 bpm consistent with atrial fibrillation, QTc interval 0.443, no STEMI, no ACS, no acute ischemia. EKG interpreted by ED attending physician Dr. Abdul (DONI RAMIRES APRN) Radiology/Procedures Radiology/Procedures SEX: F EXAM STATUS: REG ER ORD. PHYSICIAN: DONI RAMIRES APRN REASON: ALTERED MENTAL STATUS PROCEDURE: CT HEAD WO CONTRAST CT brain without contrast. HISTORY: Altered mental status CT scan the brain was done without contrast. Sinuses are clear. A skull fracture is not identified. Mastoids are normally aerated. There is mild atrophy. There is no intracranial hemorrhage or subdural hematoma. There is no mass or shift of the midline. Ventricles are mildly dilated probably related atrophy. There is decreased density in the white matter from chronic microvascular changes. An acute CVA is not identified. IMPRESSION: 1. Atrophy and chronic white matter changes. 2. No intracranial hemorrhage or acute CVA noted. SEX: F EXAM STATUS: REG ER ORD. PHYSICIAN: DONI RAMIRES APRN REASON: HYPOXIA PROCEDURE: CHEST AP ONLY AP chest. HISTORY: Hypoxia AP view was taken of the chest. Heart is enlarged. 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 There is arthritis in the left shoulder. There are hazy bilateral infiltrates which have worsened since the old studies. Atypical or viral pneumonia is possible. Other etiologies for interstitial infiltrates are possible or pulmonary fibrosis with worsening. IMPRESSION: 1. Bilateral hazy infiltrates. 2. Cardiomegaly. Electronically signed by: Collin Dill MD (02/27/2020 2:38 PM) [facility] DICTATED AND SIGNED BY: COLLIN DILL MD DATE: 02/27/20 1437 CC: DONI RAMIRES APRN; MAHI FOX MD; ASHLEY ABDUL DO ~MTH0 0 PQRS Compliance Statement: One or more of the following individualized dose reduction techniques were util ized for this examination: 1. Automated exposure control 2. Adjustment of the mA and/or kV according to patient size 3. Use of iterative reconstruction technique Electronically signed by: Collin Dill MD (02/27/2020 3:19 PM) [facility] DICTATED AND SIGNED BY: COLLIN DILL MD DATE: 02/27/20 1514 CC: DONI RAMIRES APRN; MAHI FOX MD; ASHLEY ABDUL DO ~MTH0 0 (DONI RAMIRES APRN) Heart Score Risk Factors: Risk Factors: DM, Current or recent (<one month) smoker, HTN, HLP, family history of CAD, obesity. Risk Scores: Risk Factors: DM, Current or recent (<one month) smoker, HTN, HLP, family history of CAD, obesity. (DONI ARMIRES APRN) Course & Med Decision Making Course & Med Decision Making Pertinent Labs and Imaging studies reviewed. (See chart for details) 79-year-old female sent to emergency department today by family for symptoms of failure to thrive. Patient lives with her son and [id number] who state they both have the COVID-19 virus. Patient states they were socially isolating themselves from the patient and had not noticed her mental status changes. History was given by EMS regulatory services consultant whom states the patient's today just hours before their transport of patient here to [facility]. Patient was found in urine soaked clothing, however calm and cooperative with EMS and also, cooperative with ED staff here at [facility] today. Patient was worked up for altered mental status, hypoxia, and a urine was sent along with serum labs. Patient did show signs of decreasing blood pressure 91/39, her heart rate was 81. O2 sat remained at 93% on nonrebreather at 100% FiO2, fluid maintenance was started 125 cc/h normal saline. CT head was read negative by house radiologist rotation, however chest x-ray concerning for bilateral pneumonia. Her urine was concerning for urinary tract infection with hematuria. Discussed patient with [facility] inpatient management Dr. Franks who recommended patient be transferred to [facility] for higher level of care related to patient's full CODE STATUS. Discussed patient case with [facility] inpatient management Dr. Bush who agreed to assume patient care as admission to [facility] ICU for bilateral pneumonia, hypoxia, UTI, PUI. EMTALA transfer forms were initiated and signed, patient was transferred to [facility] via EMS. Patient does live at home with son and [id number], for further HPI or questions regarding patient past medical history you may call her son Doni at phone number area code [phone]. Related to patient's incapacity to make her own educated medical decisions, patient's next of kin being her son Doni Zavala who was contacted on telephone number [phone], Doni Zavala was advised of patient's guarded status, asked about DNR status of patient, patient's son Doni Zavala iterated that he wishes patient to be a DO NOT RESUSCITATE/DNR. Doni Zavala went on to state that he understands that the meaning of DNR is lifesaving measures are withheld in the event the patient stops breathing and her heart stops beating. Doni Sally also reiterated these DNR wishes to ED attending Dr. Abdul. Discussed patient case again with Dr. Franks and updated him with patient DNR status, Dr. Franks agreed to take patient under admission to the MedSurg unit with a diagnosis bilateral pneumonia, hypoxia, uncontrolled diabetes, urinary tract infection with hematuria, PUI. Patient is a DNR. Dr. Franks has assumed patient care. (DONI RAMIRES APRN) Course & Med Decision Making I oversaw on the above date of service of this patient and discussed the care with the PRINCIPAL CYBER ENGINEER. I personally evaluated patient and reported certain aspects of history and physical examination. I oversaw entirety of care while in ER. I had discussion with son about CODE STATUS and confirmed DNR status. I agree with the findings, plan of care, and disposition as documented. Critical Care Time This patient required critical care. Due to the fact that the patient required a significant amount of one on one physician - patient contact time, ordering and review of studies, arranging urgent treatment with development of a management plan, evaluation of patients response to treatment with frequent reassessments, and discussions with other providers this patient required 60 minutes of critical care time. Critical care time was indicated due to the inherent instability and/or potential for instability in this patient. The critical care time that is allocated to this patient is above and beyond any time spent on any other billable procedures performed on this patient. (ASHLEY ABDUL DO) Dragon Disclaimer Dragon Disclaimer This electronic medical record was generated, in whole or in part, using a voice recognition dictation system. (DONI RAMIRES APRN) Departure Departure: Impression: Primary Impression: Pneumonia Additional Impressions: Hypoxia UTI (urinary tract infection) Person under investigation for COVID-19 Uncontrolled diabetes mellitus Disposition: 09 ADMITTED INPT THIS HOSP Admitting Physician: Aren Franks (MED/SURGE UNIT DNR STATUS) (DONI RAMIRES APRN) Admitting Physician: Aren Franks (MED/SURGE UNIT DNR STATUS) (ASHLEY ABDUL DO) Condition: GUARDED Referrals: MAHI FOX MD (PCP) Problem Qualifiers Primary Impression: Pneumonia Pneumonia type: due to unspecified organism Laterality: bilateral Lung location: unspecified part of lung Qualified Codes: J18.9 - Pneumonia, unspecified organism Additional Impressions: UTI (urinary tract infection) Urinary tract infection type: site unspecified Hematuria presence: with hematuria Qualified Codes: N39.0 - Urinary tract infection, site not specified; R31.9 - Hematuria, unspecified Uncontrolled diabetes mellitus Diabetes mellitus type: type 2 Glycemic state: with hyperglycemia Qualified Codes: E11.65 - Type 2 diabetes mellitus with hyperglycemia DONI RAMIRES APRN Feb 27, 2020 15:45 ASHLEY ABDUL DO Feb 28, 2020 06:06
[2020-02-27] MEDS ORDERED: cefTRIAXone SODIUM 1 GM VIAL ONE (15:57)
[2020-02-27] MEDS ORDERED: IV NORMAL SALINE 50ML 50 ML ONE (15:57)
[2020-02-27] MEDS ORDERED: IV NORMAL SALINE 1,000ML 1,000 ML IV ONE ×2 (16:15→17:30)
--- NOTE | 2020-02-27 18:05 | NUR ---
PATIENT ARRIVED TO UNIT VIA EMS. PATIENTS VS OBTAINED AND ARE STABLE. PT IS RESTING IN BED AT THIS TIME. DR DAY NOTIFIED OF ADMISSION.
[2020-02-27 18:26] VITALS: BP 122/95
--- NOTE | 2020-02-27 19:50 | NUR ---
PT unable to hear, so used handheld dry erase board. PT with some difficulty reading and understanding. PT without mask on at time of assessment. PT would keep pulling mask off to talk. Nurse reapplied multiple times and it was on when nurse left the room at the end of assessment. PT stated her had been sick with COVID, placed on hospice recently and yesterday morning. PT had been sleeping upon entry to room. Per off-going nurse, PT's 02/27/20 am at home. PT's son and his family moved in with them a few weeks ago. PT states she got a shower this morning from her sister.
[2020-02-27 23:41] VITALS: BP 134/51
[2020-02-28 05:00] VITALS: BP 128/63
[2020-02-28] MEDS ORDERED: LATA7.5D EACHEYE (07:38)
[2020-02-28] MEDS ORDERED: AMLO2.5T5 PO (07:38)
[2020-02-28] MEDS ORDERED: POTA10TA5 PO (07:38)
[2020-02-28] MEDS ORDERED: INSU100I13 SQ (07:41)
[2020-02-28] MEDS ORDERED: FUROSEMIDE 100 MG/10 ML VIAL IVP ONE (10:30)
[2020-02-28 10:49] VITALS: BP 113/61
--- NOTE | 2020-02-28 10:55 | HP ---
ADMIT DATE: 02/27/2020 ATTENDING PHYSICIAN: Dr. Day. CHIEF COMPLAINT: Weakness and shortness of breath. HISTORY OF PRESENT ILLNESS: The patient is an 79-year-old female who has underlying dementia. She has been at home. Her just the day before, he had been on hospice care and was expected. She has had positive exposure to COVID-19 with family members. Her swab is pending. Clinically, she appears to have infection too. She is chronically short of breath with hypoxemia. Her oxygen saturations are at close to 100% with marginal saturations. She is demented and would not keep her mask on. Initially, she was deemed to be a full code. I recommended a higher level of care then the ER personnel called me back and said the patient is now a DNR. Therefore, she was admitted for further treatment as well as comfort measures. I looked at the chest x-ray. She has cardiomegaly and bilateral pleural effusions along with infiltrate hazy in nature consistent with atypical pneumonia. She has COVID-19 pneumonia until proven otherwise. She also has not been taking her insulin. Sugars were over 400. There is a history of atrial fibrillation and essential hypertension. PAST MEDICAL HISTORY: 1. As noted. 2. Type 2 diabetes, poor control. 3. Paroxysmal atrial fibrillation, essential hypertension and generalized debilitation along with significant dementia. It is unclear who is the primary caregiver at their house. CURRENT MEDICINES: Reviewed. She has a scheduled amlodipine, Lipitor, Lasix, insulin regular and Lantus, Synthroid, lisinopril, potassium, and Xarelto. ALLERGIES: She has allergies to Celebrex. Exact reactions unclear. SOCIAL HISTORY: Nonsmoker, nondrinker. FAMILY HISTORY: Unobtainable. REVIEW OF SYSTEMS: Unobtainable due to the patient's current mental state. PHYSICAL EXAMINATION: GENERAL: This is a pleasant, confused elderly female. INITIAL VITAL SIGNS: Showed blood pressure 128/63 mmHg, pulse was 76 and regular, temperature 97.8 degrees Fahrenheit, oxygen saturation 89% on 15 liters by nonrebreather mask. HEENT: Head is without trauma. Pupils are reactive. Sclerae nonicteric. The oropharynx is clear. NECK: Supple, no bruits identified. LUNGS: Shallow respirations. CARDIOVASCULAR: Showed distant heart tones. No gallops. ABDOMEN: Soft, no guarding, rebound tenderness. Bowel sounds are hypoactive. EXTREMITIES: Showed trace edema. NEUROLOGIC: Pleasantly confused. She is bedridden. We could not assess a full neurologic exam. She is nonambulatory at this time. PERTINENT LABORATORY AND X-RAY STUDIES: Chest x-ray as noted. White count is 11,400, hemoglobin 12.6 grams. The electrolytes showed sodium 129 mEq, potassium 4.6, chloride 91, creatinine is 1.3 mg/dL, nonfasting blood sugar was 454. Hemoglobin A1c 6.0. Troponins were unremarkable. BNP was 2278. ASSESSMENT: 1. An 79-year-old female with acute on chronic respiratory failure. 2. Probable COVID-19 exposure. 3. Atypical pneumonia. 4. Congestive heart failure component. 5. Paroxysmal atrial fibrillation. 6. Poorly controlled diabetes. 7. Significant mental status issues with dementia. 8. Degenerative arthritis. PLAN: 1. Admit to the inpatient unit. 2. She is a DNR per advanced directive. 3. Supplemental oxygen. 4. I have ordered Decadron with monitoring sugars. 5. She already is on anticoagulation with Xarelto. 6. Follow up x-rays. Prognosis is quite guarded ___. GAGE DAY MD DR: XIOMARA/corey JOB#: [id number] / [id number] MAHI Phillips MD
[2020-02-28] MEDS ORDERED: DEXAMETHASONE 4 MG TABLET PO SCH (11:00)
[2020-02-28] MEDS: INSULIN LISPRO 300 UNITS/3 ML VIAL. SQ SCH ×2 (13:22→17:08)
[2020-02-28 15:13] VITALS: BP 151/56
--- NOTE | 2020-02-28 17:14 | NUR ---
NSG NOTE; REMOVES O2 MASK PT IS CONFUSED AND JOSE REMOVES HER O2 MASK. SHE DESATs TO THE 70s ON RA AND RECOVERS TO 85+% AFTER BEING PUT BACK ON THE NONREBREATHER MASK AT 15L
[2020-02-28 19:20] VITALS: BP 105/55
[2020-02-28] MEDS ORDERED: INSULIN GLARGINE SYRINGE. SQ SCH (21:00)
--- NOTE | 2020-02-28 23:10 | NUR ---
PT noted in ventricular rhythm on monitor by this RN. This RN went into the room to check on the PT. PT noted to be breathing at 4/minute. PT with nonrebreather mask on with 15 L running at this time. PT unable to be aroused with sternal rub to chest. PT's breathing ceased within 2 minutes with no recovery. PT's heartbeat not detectable on palpation in bilateral radial and bilateral carotid arteries for a full minute each. Double nurse verification by KING Strickland. Time of noted at 2232. Immediately notified Dr. Franks, family (Doni, son) and home ([facility]) for transport. Family wishes for cremation. PT cleaned and prepped for transport per COVID+ guidelines.
--- NOTE | 2020-02-28 23:38 | NUR ---
[facility] home underwriting sales representative picked up PT, left facility at [phone] with PT's belongings including wedding band set and watch which were on PT at time of departure from [facility] as well as a bag of clothing.
--- NOTE | 2020-02-29 00:13 | DS ---
DATE OF DISCHARGE: ATTENDING PHYSICIAN: Dr. Day. DATE OF EXPIRATION: 02/28/2020 FINAL DISCHARGE DIAGNOSES: 1. Acute hypoxemic respiratory failure. 2. Suspected COVID-19 coronavirus pneumonia bilaterally. 3. Atypical pneumonia on chest x-ray. 4. Profound dementia. 5. Diabetes mellitus with poor control. HISTORY AND PHYSICAL: This 79-year-old female who had been cared for at home. She just lost her on the day of admission. He had COVID-19 pneumonia. Two of her sons also came down ____. She has had increasing shortness of breath, brought to the Emergency Room. Chest x-ray demonstrated bilateral infiltrates. It was highly suspicious that she also had COVID-19 coronavirus. The tests were still pending at the time of this dictation. The patient initially had been deemed a full code but as it turned out the family and durable power of mobile home park manager requested no heroics and she was a DNR. She was admitted for comfort measures and further treatment. PHYSICAL EXAMINATION: Please see my dictated note. PERTINENT LABORATORY AND X-RAY STUDIES: Her admission blood sugar was over 400. Serum sodium 129 mEq per liter. The chest x-ray demonstrated bilateral infiltrates, extending into all 5 lobes, fairly extensive patchy infiltrates throughout both lung mann. The patient was admitted. She required high flow oxygen to maintain oxygen saturations approximately 90%. We went up of 15 liters by high flow mask. She also had some BiPAP in the ED. She was kept comfortable, IV hydration along with morphine. In addition, insulin was administered to help with blood sugars. Subsequent ____ obtained. She was very confused and did not provide much history. She was kept comfortable; however, later on the second evening of admission 02/28/2020 at approximately 2230 hours, the patient succumbed to her illness. Family was notified. She passed quietly in the hospital related to respiratory failure. I will sign the certificate for this patient when it is available. The body was [place] to the [facility] [place]. Family was notified. Therefore, the patient succumbed to her illness, on the second hospital day. Total discharge time spent 38 minutes. GAGE DAY MD DR: [email or web address]/corey JOB#: [id number] / [id number] MAHI Phillips MD
== END 2020-02-28 23:39 | DRG 177 ==
LOC: ER 13:49 → 1 SOUTH 17:15 → ER 17:57
PROVIDERS: ADMIT Hospitalist; ATTEND Hospitalist
DX: U07.1 COVID-19 (principal); J12.82 Pneumonia due to coronavirus disease 2019; J96.21 Acute and chronic respiratory failure with hypoxia; N39.0 Urinary tract infection, site not specified; F03.90 Unspecified dementia, unspecified severity, without behavioral disturbance, psychotic disturbance, mood disturbance, and anxiety; I11.0 Hypertensive heart disease with heart failure; I48.0 Paroxysmal atrial fibrillation; I50.9 Heart failure, unspecified; M19.012 Primary osteoarthritis, left shoulder; Z51.5 Encounter for palliative care; E11.65 Type 2 diabetes mellitus with hyperglycemia; Z66 Do not resuscitate; Z79.4 Long term (current) use of insulin; Z96.649 Presence of unspecified artificial hip joint; Z88.8 Allergy status to other drugs, medicaments and biological substances; Z91.041 Radiographic dye allergy status
CPT/HCPCS: 36415; 36600; 70450; 71045; 80053; 81001; 82010; 82140; 82803; 82947; 83605; 83615; 83735; 84100; 84484; 85025; 87040; 87086; 93005; 96365; 96366; 96368; J0456; J0696; J1815; J7050; J8540; P9612; U0003; 99285-25; J7030